=== PATIENT | female | born 1990 | race Caucasian/White ===

== ENCOUNTER 2017-07-30 11:40 | Emergency (ER) | payer MEDICAID, SELFPAY ==
[2017-07-30 11:40] VITALS: BP 151/96; PULSE 88; RESP 20; TEMP 36.6; O2SAT 100; BMI 37.0
--- NOTE | 2017-07-30 11:53 | NURSING ---
NO OLD EKGS
--- NOTE | 2017-07-30 12:14 | EKG12_ITS ---
Test Reason : CP Blood Pressure : / mmHG Vent. Rate : 063 BPM Atrial Rate : 063 BPM P-R Int : 124 ms QRS Dur : 084 ms QT Int : 370 ms P-R-T Axes : -05 006 009 degrees QTc Int : 378 ms Sinus rhythm with marked sinus arrhythmia Otherwise normal ECG Confirmed by FLORENCIO FRENCH, YESY ([id number]), design editor OSORIO BERGMAN ([id number]) on 07/31/2017 2:25:15 PM Referred By: SANDRA Confirmed By:YESY MATIAS MD
--- NOTE | 2017-07-30 12:14 | RAD_ITS ---
STUDY: X-RAY CHEST REASON FOR EXAM: Female, 27 years old. Chest pain x2 days TECHNIQUE: Single AP portable view of the chest. COMPARISON: None. FINDINGS: The lungs are clear and expanded. There is no demonstrated pleural abnormality. Normal size heart. Normal mediastinum and yo. Normal visualized pulmonary arteries. Normal visualized aortic arch and descending thoracic aorta. Normal visualized thoracic spine. Normal visualized ribs, clavicles, and shoulders. There is no demonstrated abnormality of the visualized soft tissue structures of the upper abdomen. RAD/Chest 1 View (Portable) IMPRESSION: Normal x-ray examination of the chest. Electronically Signed: Nahun Pierre DO at 12:49 EDT Tel , Service support ,
[2017-07-30] MEDS: 0.9% Normal Saline 1,000 ML 1000 ML IV (12:44)
[2017-07-30 12:47] LABS: Absolute Lymphocyte Count 3.03 X10^3/ul (0.83-4.51); Absolute Neutrophil Count 5.8 X10^3/uL (2.0-7.7); Basophil# 0.03 X10^3/uL; Basophil% 0.3 % (0-1); Eosinophil# 0.18 X10^3/uL; Eosinophils% 1.8 % (0-5); Hematocrit 38.7 % (37-47); Hemoglobin 13.1 g/dl (12.0-15.0); Lymphocyte # 3.03 X10^3/ul (4.0); Lymphocyte % 31.1 % (19-41); Mean Corp Hgb Conc 33.9 g/gl (32-36); Mean Corpuscular Hgb 28.7 pg (27.0-32.0); Mean Corpuscular Volume 84.7 fL (81-99); Mean Platelet Vol. 10.5 fl (6.2-12.0); Monocyte# 0.67 X10^3/uL; Monocyte% 6.9 % (0-10); Neutrophil # 5.83 X10^3/uL (2.7-7.7); Neutrophil % 59.8 % (47-70); POSITIVE COUNT NO; POSITIVE DIFFERENTIAL NO; POSITIVE MORPHOLOGY NO; Platelet Count 295 K/mm3 (150-450); RBC Distribution Width CV 12.5 % (11.6-14.6); RBC Distribution Width SD 38.1 fl (35.1-43.9); Red Blood Count 4.57 M/mm3 (4.2-5.4); White Blood Count 9.8 K/mm3 (4.4-11.0)
[2017-07-30 13:01] LABS: Anion Gap 8 (5-15); BUN 15 mg/dL (7-18); BUN/Creat Ratio 21.7 RATIO (10-20); Calcium,Total 9.2 mg/dL (8.5-10.1); Chloride 108 mmol/L (98-107); Creatinine, Serum 0.69 mg/dL (0.55-1.02); EST Glomerular Filtration Rate 110 mL/min (>60); Est Glom Filt Rate - Afr Amer 133 mL/min (>60); Estimated Creatinine Clearance 98.58 ml/min; Glucose 80 mg/dL (74-106); Potassium 3.8 mmol/L (3.5-5.1); Sodium Level 140 mmol/L (136-145)
[2017-07-30 13:02] LABS: D-Dimer Quantitative (DVT/PE) 0.35 FEU/ug/m (0.27-0.49)
[2017-07-30 13:08] LABS: Pregnancy, Serum, hCG Quali. NEGATIVE Negative (0-9 Nonpreg)
--- NOTE | 2017-07-30 13:38 | ED.VISSUMM ---
- ER Visit Summary Date of Service: 07/30/17 Chief Complaint: Chest pain History of Present Illness: The patient is a 27 F with no primary care physician. She reports that she has a tightness over the left side of her chest that began 2 days ago. Is a continuous waxing and waning pain. Zeta 10 at worst and currently. States that is worsened by deep breaths and relieved by nothing. She denies any personal or family history of DVT. No recent travel. She does have a NuvaRing in place and smokes however. No ankle swelling or calf pain. Physical Examination: Vitals: Stable. Afebrile. General: Well-nourished and well-developed. Head: Normocephalic atraumatic. Neck: Supple, no lymphadenopathy. No JVD. Nontender. Cardiovascular: Regular rate and rhythm. No murmurs. Respiratory: No respiratory distress. Clear to auscultation bilaterally. Moderate tenderness palpation over the left upper chest that does reproduce her pain. Abdominal: Soft, nontender, nondistended, normal bowel sounds. No guarding, rebound, or peritoneal signs. Back: Nontender. Extremities: Nontender, no edema. Skin: Normal color, no rash. Neurologic: Alert and oriented ?3. Cranial nerves II through XII are intact. Normal strength and sensation. Psych: Normal affect. Test Results: EKG is sinus arrhythmia at 63 with no acute changes. D-dimer is negative. test negative. Chem-7 is more for chloride 108. CBC is normal. Emergency Department Course and Treatment: Patient refused pain medications and is resting comfortably. Treatment Plan: Patient will be discharged instructions to follow-up Dr. Omari Peralta III in 3-5 days not improving. She be placed on naproxen at home. Return to the emergency department for any worsening symptoms. Disposition: To home in improved and stable condition. Impression: 1. Atypical chest pain. This note was generated with [employer] dictation software. It may contain incorrect words, spelling, and punctuation that were not noted in review of the chart prior to signing ED Disposition - Plan for ED Patient: Disposition: Home or Assisted Living Chief Complaint: Chest Pain Instructions: ED Chest Pain Atypical Unkn Cause Prescriptions: Naproxen [Naprosyn] 500 mg PO BID #20 tablet Referrals: Omari Peralta III, MD [STAFF PHYSICIAN] - 3-5 Days if not improving
[2017-07-30 13:57] VITALS: BP 128/78; PULSE 58; RESP 16; O2SAT 98
== END 2017-07-30 13:59 | disposition home or self-care (01) ==
LOC: ED 12:46
PROVIDERS: Emergency Provider Emergency Medicine
DX: R07.89 Other chest pain (principal); I49.9 Cardiac arrhythmia, unspecified; R61 Generalized hyperhidrosis; R06.00 Dyspnea, unspecified; F17.200 Nicotine dependence, unspecified, uncomplicated; Z97.5 Presence of (intrauterine) contraceptive device
CPT/HCPCS: 71045; 80048; 84703; 85025; 85379; 93005; 96360; 99285; J7030; A4216

== ENCOUNTER 2018-08-18 09:40 | Emergency (ER) | payer MEDICAID, SELFPAY ==
[2018-08-18 09:42] VITALS: BP 143/107; PULSE 125; RESP 18; TEMP 36; O2SAT 96; BMI 33.7
--- NOTE | 2018-08-18 09:52 | RAD_ITS ---
STUDY: X-RAY CHEST REASON FOR EXAM: Female, 28 years old. Cough. Nausea and vomiting. TECHNIQUE: Single AP portable view of the chest. COMPARISON: Comparison is made with prior study of July 30, 2017. FINDINGS: The lungs are clear and expanded. There is no demonstrated pleural abnormality. Normal size heart. Normal mediastinum and yo. Normal visualized pulmonary arteries. Normal visualized aortic arch and descending thoracic aorta. Normal visualized thoracic spine. Normal visualized ribs, clavicles, and shoulders. There is no demonstrated abnormality of the visualized soft tissue structures of the upper abdomen. RAD/Chest PA and Lateral IMPRESSION: Normal x-ray examination of the chest. Electronically Signed: Kai Mcdermott, at 10:52 EDT , Service support ,
--- NOTE | 2018-08-18 09:52 | EKG12_ITS ---
Test Reason : N/V Blood Pressure : / mmHG Vent. Rate : 096 BPM Atrial Rate : 096 BPM P-R Int : 132 ms QRS Dur : 080 ms QT Int : 340 ms P-R-T Axes : 048 007 022 degrees QTc Int : 429 ms Normal sinus rhythm Normal ECG Confirmed by FLORENCIO FRENCH, YESY ([id number]), film editor supervisor OSORIO BERGMAN ([id number]) on 08/23/2018 4:21:58 PM Referred By: PRASANNA Confirmed By:YESY MATIAS MD
--- NOTE | 2018-08-18 09:58 | ED.DCSUM_ITS ---
- ER Visit Summary Date of Service: 08/18/18 Chief Complaint: Nausea, vomiting, and diarrhea History of Present Illness: The patient is a 28 F with nausea vomiting and diarrhea. Her symptoms started 4 days ago. She had chest tightness, cough, sputum, fevers, and body aches. She went to urgent care yesterday and they diagnosed her clinically with pneumonia. She was prescribed doxycycline and albuterol. She feels like her symptoms are getting worse. Patient has a previous history of smoking. Denies any history of lung disease or heart disease. Physical Examination: Afebrile but tachycardic at 125. Patient appears ill and uncomfortable but not toxic or in distress. HEENT exam is unremarkable. Heart is tachycardic but regular. Lungs show wheezing in all [place]. Abdomen is soft. Extremities nontender with no edema. Skin is normal in color. Test Results: EKG, labs, chest x-ray pending. Emergency Department Course and Treatment: Patient symptoms sound concerning for influenza. I also considered other infectious causes. She is a former smoker and has some wheezing. She was treated with a DuoNeb, Solu-Medrol, fluids, and some Zofran. Will check labs, EKG, and chest x-ray. We will also check a flu swab. There is nothing to suggest ACS, PE. Patient was positive for influenza A. The remainder of her workup including labs, troponin, EKG, chest x-ray unremarkable. Nausea improved with Zofran. I believe the patient is appropriate for outpatient therapy. She is not septic. I cannot identify complications of influenza. Patient is outside the window for Tamiflu. She will be prescribed prednisone, albuterol, and Zofran. She should discontinue her doxycycline. She should return right away if she is worse or has any new issues. Treatment Plan: As above Disposition: Discharge Impression: 1. Influenza A 2. Bronchitis This note was generated with [employer] dictation software. It may contain incorrect words, spelling, and punctuation that were not noted in review of the chart prior to signing ED Disposition - Plan for ED Patient: Referrals: Care Physician,No Primary [Primary Care Provider] -
[2018-08-18 10:16] VITALS: PULSE 109; RESP 18
[2018-08-18] MEDS: Ipratropium/Albuterol Sulfate 3 ML AMPUL.NEB INHALATION (10:16)
[2018-08-18] MEDS: 0.9% Normal Saline 1,000 ML 1000 ML IV (10:24)
[2018-08-18] MEDS: Ondansetron 4 MG/2 ML Vial IV (10:25)
[2018-08-18] MEDS: MethylPREDNISolone 125 MG/2 ML Vial IV (10:25)
[2018-08-18 10:26] LABS: Absolute Lymphocyte Count 1.27 X10^3/ul (0.83-4.51); Absolute Neutrophil Count 6.1 X10^3/uL (2.0-7.7); Basophil# 0.04 X10^3/uL; Basophil% 0.5 % (0-1); Eosinophil# 0.01 X10^3/uL; Eosinophils% 0.1 % (0-5); Hematocrit 42.1 % (37-47); Hemoglobin 15.1 g/dl (12.0-15.0); Lymphocyte # 1.27 X10^3/ul (4.0); Lymphocyte % 15.2 % (19-41); Mean Corp Hgb Conc 35.9 g/gl (32-36); Mean Platelet Vol. 10.5 fl (6.2-12.0); Monocyte# 0.89 X10^3/uL; Monocyte% 10.7 % (0-10); Neutrophil # 6.13 X10^3/uL (2.7-7.7); Neutrophil % 73.4 % (47-70); Platelet Count 292 K/mm3 (150-450); RBC Distribution Width CV 12.6 % (11.6-14.6); RBC Distribution Width SD 37.1 fl (35.1-43.9); White Blood Count 8.4 K/mm3 (4.4-11.0)
[2018-08-18 10:28] LABS: POSITIVE COUNT NO; POSITIVE DIFFERENTIAL NO; POSITIVE MORPHOLOGY NO
[2018-08-18 10:39] LABS: Anion Gap 8 (5-15); BUN 9 mg/dL (7-18); Calcium,Total 8.9 mg/dL (8.5-10.1); Chloride 108 mmol/L (98-107); EST Glomerular Filtration Rate 80 mL/min (>60); Est Glom Filt Rate - Afr Amer 97 mL/min (>60); Estimated Creatinine Clearance 74.92 ml/min; Glucose 103 mg/dL (74-106); Potassium 3.3 mmol/L (3.5-5.1); Sodium Level 139 mmol/L (136-145)
--- NOTE | 2018-08-18 11:08 | ED.RN ---
lab resulted positive flu a, physician notified
--- NOTE | 2018-08-18 12:07 | ED.DEP ---
ED Disposition - Plan for ED Patient: Instructions: Influenza Prescriptions: Ondansetron [Zofran Odt] 4 mg PO Q8H PRN PRN #10 tab PRN Reason: Nausea Prednisone 10 mg PO UD #33 tab Referrals: Siobhan Edouard [NON-STAFF] -
== END 2018-08-18 12:35 | disposition home or self-care (01) ==
PROVIDERS: Emergency Provider Emergency Medicine
DX: J09.X2 Influenza due to identified novel influenza A virus with other respiratory manifestations (principal); J40 Bronchitis, not specified as acute or chronic; Z87.891 Personal history of nicotine dependence
CPT/HCPCS: 71046; 80048; 84484; 85025; 87804; 93005; 94640; 96361; 96374; 96375; 99283; J7030; A4216; J2405

== ENCOUNTER 2019-07-12 04:57 | Emergency (ER) | payer MEDICAID, SELFPAY ==
[2019-07-12 04:57] VITALS: BP 132/102; PULSE 80; RESP 14; TEMP 36.9; O2SAT 96; BMI 33.0
--- NOTE | 2019-07-12 05:28 | EKG12_ITS ---
Test Reason : DYSRHYTHMIA Blood Pressure : / mmHG Vent. Rate : 059 BPM Atrial Rate : 059 BPM P-R Int : 124 ms QRS Dur : 086 ms QT Int : 388 ms P-R-T Axes : 022 014 031 degrees QTc Int : 384 ms Sinus bradycardia Otherwise normal ECG Confirmed by LAURA LANCE ([id number]), publications editor RONDA WATKINS ([id number]) on 07/13/2019 2:31:36 PM Referred By: Confirmed By:LAURA LANCE
--- NOTE | 2019-07-12 05:29 | CT_ITS ---
STUDY: CTA CHEST REASON FOR EXAM: Female, 29 years old. Chest pain and shortness of breath. RADIATION DOSAGE (If Supplied By Facility): CTDIvol = ( 8.93 ) mGy, DLP = ( 385.22 ) mGycm TECHNIQUE: The examination was performed with the intravenous administration of 100mL Isovue 370. Post-processing of the angiographic images was performed, with MIP reconstructed images. Individualized dose optimization techniques were used for this CT. COMPARISON: 08/18/2018 CXR FINDINGS: Heart and great vessels: Heart size normal. No dissection or aneurysm of the thoracic aorta. No pulmonary embolus. No evidence of right heart strain. Lungs, pleura: Multifocal groundglass opacities scattered throughout all lobes of both lungs, most prominent in the lingula. No pneumothorax, pleural effusion, or consolidation. Small amount of mucous plugging in left lower lobe subsegmental bronchioles. Trachea, main bronchi patent. Mediastinum: Mild prevascular, paratracheal, subcarinal, and bilateral hilar adenopathy. Osseous:No fracture or acute osseous abnormality. Chest wall: No concerning findings. Upper abdomen: No acute findings. CT/CTA Chest W/WO Contrast IMPRESSION: Several groundglass opacities in the bilateral lungs suspicious atypical or viral pneumonia. Noninfectious inflammatory pneumonitis or edema possible but less likely. Mild reactive appearing mediastinal and hilar adenopathy. Electronically Signed: Chevy Cabrera, at 7:14 EST Tel , Service support ,
[2019-07-12 05:44] VITALS: PULSE 79; RESP 18; RESP 20; O2SAT 93
[2019-07-12] MEDS: Albuterol 2.5 MG/3 ML VIAL.NEB. INHALATION ×3 (05:44)
[2019-07-12] MEDS: Ipratropium/Albuterol Sulfate 3 ML AMPUL.NEB INHALATION (05:44)
[2019-07-12 05:47] VITALS: TEMP 36.9
[2019-07-12] MEDS: 0.9% Normal Saline 1,000 ML 1000 ML IV (05:48)
[2019-07-12] MEDS: Ketorolac 15 MG/ML Vial IV (05:48)
--- NOTE | 2019-07-12 05:50 | ED.VISSUMM ---
- ER Visit Summary Date of Service: 07/12/19 Chief Complaint: Chest pain, cough History of Present Illness: The patient is a 29 F presenting with cough, chest pain, shortness of breath. She states this started one week ago. She was diagnosed with pneumonia and started on doxycycline. She complains of right-sided chest pain. She states it has been constant since 730pm last night. It is worsened with coughing and deep breathing. She denies PE/DVT risk factors. She has a history of migraines, denies other past medical history. She is not a smoker. Denies family history of early heart disease. Denies fever. Denies other complaints. Physical Examination: Vitals are stable. Patient is afebrile. Alert no acute distress. HEENT exam is unremarkable. Neck is supple. Lungs are expiratory wheezing bilaterally Heart is regular rate and rhythm. Abdomen is soft nontender nondistended. Extremities are unremarkable. Skin is warm and dry. No focal neurologic deficit. Remainder of exam is unremarkable. Emergency Department Course and Treatment: Patient was given albuterol, Atrovent aerosols. She is given Toradol IV. EKG is sinus rate of 59 with no acute ischemic changes. CBC shows white count 12.6. Chemistries unremarkable. Troponin is negative. hCG negative. CTA chest shows several groundglass opacities in the bilateral lungs suspicious atypical or viral pneumonia. Noninfectious inflammatory pneumonitis or edema possible but less likely. Mild reactive appearing mediastinal and hilar adenopathy. On reevaluation, patient is feeling improved. Her lung sounds are improved. Her ambulatory pulse ox was 94% on room air. She is advised to continue her doxycycline until complete. She is given a prescription for Augmentin. Advised return to the ED for worsening complaints. Advised to follow up with primary care physician. Disposition: Discharge home Impression: Atypical pneumonia This note was generated with [employer] dictation software. It may contain incorrect words, spelling, and punctuation that were not noted in review of the chart prior to signing ED Disposition - Plan for ED Patient: Instructions: Pneumonia Prescriptions: Amoxicillin/Potassium Clav [Augmentin 875-125 Tablet] 1 ea PO BID #14 tab Prescription Printed Referrals: Colt Hardwick MD [Primary Care Provider] -
[2019-07-12 05:54] LABS: Absolute Lymphocyte Count 4.09 X10^3/uL (0.83-4.51); Absolute Neutrophil Count 5.3 X10^3/uL (2.0-7.7); Basophil% 0.8 % (0-1); Eosinophils% 16.9 % (0-5); Hematocrit 42.7 % (37-47); Hemoglobin 14.5 g/dL (12.0-15.0); Lymphocyte # 4.09 X10^3/ul (4.0); Lymphocyte % 32.4 % (19-41); Mean Corpuscular Hgb 28.9 pg (27.0-32.0); Mean Corpuscular Volume 85.2 fL (81-99); Mean Platelet Vol. 10.3 fl (6.2-12.0); Monocyte# 0.95 X10^3/uL; Monocyte% 7.5 % (0-10); NRBC Flagged by Analyzer 0 % (0-5); Neutrophil # 5.33 X10^3/uL (2.7-7.7); Neutrophil % 42.2 % (47-70); POSITIVE DIFFERENTIAL YES; Platelet Count 291 K/mm3 (150-450); RBC Distribution Width CV 12.5 % (11.6-14.6); RBC Distribution Width SD 38.7 fl (35.1-43.9); Red Blood Count 5.01 M/mm3 (4.2-5.4); White Blood Count 12.6 K/mm3 (4.4-11.0)
[2019-07-12 06:06] LABS: Internal QC Validated? YES +Cl - CLEAR BKGD; Pregnancy, Serum, hCG Quali. NEGATIVE Negative
[2019-07-12 06:15] LABS: Anion Gap 5 (5-15); BUN 18 mg/dL (7-18); BUN/Creat Ratio 23.4 RATIO (10-20); Calcium,Total 9.1 mg/dL (8.5-10.1); Chloride 108 mmol/L (98-107); Creatinine, Serum 0.77 mg/dL (0.55-1.02); EST Glomerular Filtration Rate 96 mL/min (>60); Est Glom Filt Rate - Afr Amer 116 mL/min (>60); Glucose 84 mg/dL (74-106); Sodium Level 139 mmol/L (136-145)
--- NOTE | 2019-07-12 06:22 | CPS ---
x3 Albuterol given to pt. in ER as well
[2019-07-12 06:27] LABS: Eosinophil# 2.14 X10^3/uL
[2019-07-12 06:28] LABS: Differential Indicated SCAN CRITERIA MET
[2019-07-12 07:25] VITALS: BP 115/65; PULSE 89; RESP 24; O2SAT 100
[2019-07-12 07:33] VITALS: O2SAT 92
--- NOTE | 2019-07-12 07:38 | ED.DEP ---
ED Disposition - Plan for ED Patient: Instructions: Pneumonia Prescriptions: Amoxicillin/Potassium Clav [Augmentin 875-125 Tablet] 1 each PO BID #14 tablet Referrals: Colt Hardwick MD [Primary Care Provider] -
[2019-07-12 07:58] VITALS: PULSE 69; RESP 17; O2SAT 98
[2019-07-12] MEDS: Amox/Clavulanate 875 MG Tablet PO (07:59)
[2019-07-13 10:26] LABS: Pathologist Review Reviewed
== END 2019-07-12 08:04 | disposition home or self-care (01) ==
LOC: ED 05:49
PROVIDERS: Emergency Provider Emergency Medicine; PCP Family Medicine
DX: J18.9 Pneumonia, unspecified organism (principal)
CPT/HCPCS: 71275; 80048; 84484; 84703; 85025; 93005; 94640; 96361; 96374; 99251; 99283; Q9967; G0463

== ENCOUNTER 2019-08-17 02:02 | Emergency (ER) | payer MEDICAID, SELFPAY ==
[2019-08-17 02:03] VITALS: BP 127/109; PULSE 74; RESP 18; TEMP 36.6; O2SAT 98; BMI 35.9
[2019-08-17 02:07] VITALS: BP 128/77
[2019-08-17] MEDS: Ondansetron 4 MG/2 ML Vial IV (02:42)
[2019-08-17] MEDS: Ketorolac 30 MG/ML Syringe IV (02:42)
[2019-08-17] MEDS: Mag Hydrox/Al Hydrox/Simeth 30 ML UDC PO (02:42)
[2019-08-17] MEDS: 0.9% Normal Saline 1,000 ML 1000 ML IV (02:42)
[2019-08-17 02:57] LABS: Bacteria 0 SEEN /hpf (None Seen); Mucous, Urine 0 SEEN /hpf (<or=2+); Red Blood Cells-Urine 0 SEEN /hpf (0-5); White Blood Cells 0 SEEN /hpf (0-5)
[2019-08-17 03:10] LABS: AST(SGOT) 9 U/L (15-37); Absolute Lymphocyte Count 5.57 X10^3/uL (0.83-4.51); Absolute Neutrophil Count 4.3 X10^3/uL (2.0-7.7); Alanine Aminotransfer ALT/SGPT 16 U/L (13-56); Albumin, Serum 3.3 g/dL (3.2-5.0); Alkaline Phosphatase 58 U/L (45-117); Anion Gap 5 (5-15); BUN 18 mg/dL (7-18); Basophil# 0.08 X10^3/uL; Basophil% 0.7 % (0-1); Bilirubin, Direct 0.07 mg/dL (0.00-0.30); Calcium,Total 9.3 mg/dL (8.5-10.1); Chloride 110 mmol/L (98-107); EST Glomerular Filtration Rate 79 mL/min (>60); Eosinophil# 1.09 X10^3/uL; Eosinophils% 9.2 % (0-5); Est Glom Filt Rate - Afr Amer 96 mL/min (>60); Estimated Creatinine Clearance 74.26 ml/min; Globulin 3.9 g/dL (2.2-4.2); Glucose 101 mg/dL (74-106); Hematocrit 38.4 % (37-47); Hemoglobin 12.8 g/dL (12.0-15.0); Internal QC Validated? YES +Cl - CLEAR BKGD; Lipase 117 U/L (73-393); Lymphocyte # 5.57 X10^3/ul (4.0); Mean Corp Hgb Conc 33.3 g/dL (32-36); Mean Corpuscular Volume 87.1 fL (81-99); Mean Platelet Vol. 10.3 fl (6.2-12.0); Monocyte# 0.77 X10^3/uL; Monocyte% 6.5 % (0-10); NRBC Flagged by Analyzer 0 % (0-5); Neutrophil # 4.31 X10^3/uL (2.7-7.7); Neutrophil % 36.4 % (47-70); POSITIVE DIFFERENTIAL YES; Platelet Count 310 K/mm3 (150-450); Potassium 4.1 mmol/L (3.5-5.1); Pregnancy, Serum, hCG Quali. NEGATIVE Negative; Protein, Total 7.2 g/dL (6.4-8.2); RBC Distribution Width CV 12.4 % (11.6-14.6); RBC Distribution Width SD 39.8 fl (35.1-43.9); Red Blood Count 4.41 M/mm3 (4.2-5.4); Sodium Level 139 mmol/L (136-145); White Blood Count 11.8 K/mm3 (4.4-11.0)
[2019-08-17 03:13] LABS: Color, Urine Yellow (Yellow); Glucose, Dipstick Normal (Normal); Ketone-Dipstick Negative (Negative); Leukocyte Esterase-Dipstick Negative /ul (Negative); Nitrite-Dipstick Negative (Negative); Occult Blood-Urine Negative /ul (Negative); Protein-Dipstick Negative (Negative); Specific Gravity, Urine 1.015 (1.002-1.030); Urine Bilirubin Dipstick Negative (Negative); Urine Clarity Sl. Cloudy (Clear); Urine Urobilinogen Normal (Normal)
[2019-08-17 03:13] LABS: Differential Indicated SCAN CRITERIA MET
[2019-08-17 03:29] LABS: Squamous Epithelial Cells - UA 0-5 SEEN /hpf (5-10)
[2019-08-17 03:34] LABS: Reactive Lymphocyte RARE
--- NOTE | 2019-08-17 03:39 | ED.DCSUM_ITS ---
- ER Visit Summary Date of Service: 08/17/19 Chief Complaint: Abdominal pain History of Present Illness: The patient is a [address] Oron[place]. She reports that 8:00 this evening she had the onset of a sharp epigastric pain that has gradually worsened. Is 9 at 10 at worst and 710 currently. Is worsened by laying down. Is minimally relieved by Tylenol and Pepto-Bismol. She had nausea without any vomiting. No diarrhea. Her last bowel was yesterday. Normal hematochezia. She had frequent urination for the past 4 days. No dysuria. States her last menstrual period was 2 months ago and she has a NuvaRing in place. Patient last ate approximately an hour before this began. She states that she had chicken, potatoes, and hot sauce. She has no history of intolerance to spicy or fatty foods. No family history of gallstones. She is never had anything like this before. Physical Examination: Vitals: Stable. Afebrile. General: Well-nourished and well-developed. Head: Normocephalic atraumatic. Neck: Supple, no lymphadenopathy. No JVD. Nontender. Cardiovascular: Regular rate and rhythm. No murmurs. Respiratory: No respiratory distress. Clear to auscultation bilaterally. Abdominal: Soft, moderate epigastric tenderness to palpation, nondistended, normal bowel sounds. No guarding, rebound, or peritoneal signs. Back: Nontender. Extremities: Nontender, no edema. Skin: Normal color, no rash. Neurologic: Alert and oriented ?3. Cranial nerves II through XII are intact. Normal strength and sensation. Psych: Normal affect. Test Results: CBC shows white count 11.8 with 36 segment neutrophils, 47 lymphocytes, 9 eosinophils. Chem-7 shows a chloride of 110. LFTs show an AST of 9 and lipase is 117. UA is normal. test is negative. Emergency Department Course and Treatment: Patient was given Toradol and Zofran IV. She was given a GI cocktail with significant relief. Treatment Plan: Patient will be discharged with Prilosec. She given first dose of Pepcid here. Instructed to follow-up with her primary care physician 1 to 2 days if not improving. Return to the emergency department for any worsening symptoms. Disposition: To home in improved and stable condition. Impression: 1. Abdominal pain, uncertain cause. This note was generated with [employer] dictation software. It may contain incorrect words, spelling, and punctuation that were not noted in review of the chart prior to signing ED Disposition - Plan for ED Patient: Instructions: ED Abdominal Pain Unkn Cause Fem Prescriptions: Omeprazole [Prilosec] 20 mg PO DAILY #30 capsule Referrals: Colt Hardwick MD [Primary Care Provider] - 1-2 Days if not improving
[2019-08-17] MEDS: Famotidine 20 MG Tablet 40 MG PO (03:58)
== END 2019-08-17 03:59 | disposition home or self-care (01) ==
LOC: ED 02:40
PROVIDERS: Emergency Provider Emergency Medicine; PCP Family Medicine
DX: R10.13 Epigastric pain (principal); R35.0 Frequency of micturition; K92.1 Melena; R11.0 Nausea
CPT/HCPCS: 80048; 80076; 81001; 83690; 84703; 85025; 96361; 96374; 96375; 99283; J7030; A4216; J2405

== ENCOUNTER → 2020-02-16 17:59 | Outpatient (CLI) | payer MEDICAID, SELFPAY | PROVIDERS: PCP Family Medicine; Referring Provider Family Medicine; Visit Provider Family Medicine | CPT/HCPCS: 87635; C9803; U0003 ==

== ENCOUNTER 2020-05-08 12:32 | Emergency (ER) | payer MEDICAID, SELFPAY ==
[2020-05-08 12:33] VITALS: BP 133/83; PULSE 90; RESP 16; TEMP 37.2; O2SAT 98; BMI 36.2
--- NOTE | 2020-05-08 12:52 | ED.VIS.GEN ---
History of Present Illness Chief Complaint: Upper Extremity Injury Informant: Patient Narrative: 30-year-old female presenting where evaluation of dizziness. She states that she was concerned that her left shoulder pain was causing her to be dizzy. She states that her pain is not reproducible and she has not no trauma. She denies neck pain. She states the pain is in her left trapezius. Past Medical History - Allergies and Home Meds Allergies/Adverse Reactions: Allergies No Known Allergies Allergy (Verified 05/08/20 12:35) Primary Care Physician: Colt Hardwick MD [Primary Care Provider] - Smoking Status: Never smoker Review of Systems General: Denies: Chills, Fever, Sweats Eyes: Denies: Visual changes - bilaterally, Diplopia ENT: Denies: Rhinorrhea, Sore throat Cardiovascular: Denies: Chest pain, Palpitations Respiratory: Denies: Dyspnea, Cough, Dyspnea on exertion Genitourinary: Denies: Dysuria, Hematuria, Frequency Musculoskeletal: Reports: Neck pain Skin: Denies: Rash, Wounds Neurological: Denies: Headache, Parasthesia, Numbness Psych: Denies: Depression, Anxiety, Suicidal thoughts, Suicidal ideations, -, - Physical Exam Vital Signs/Narrative: Vital Signs Temp Pulse Resp BP Pulse Ox 05/08/20 12:33 98.9 F 90 16 133/83 H 98 General: Well nourished, Unkempt, No Acute Distress Eyes: Perrl, EOMI ENT: Moist mucous membranes, No rhinorrhea, - - Positive nystagmus on modified Onesimo-Hallpike. Dizziness is also elicited. Cardiovascular: Regular rate, Regular rhythm Extremities: Nontender, No edema Skin: Normal color, No rash Neurological: Alert, Oriented x3, Cranial nerves II-XII grossly intact, Normal Strength, Normal Sensation Psychological: Normal affect, Normal Mood Diagnostic/Tx/Re-eval - Medical Decision Making Patient presents with left-sided neck pain which is very mild and I am unable to reproduce pain by touching it but she points to her upper medial trapezius area its not quite in the neck or C-spine area. Patient states that she is also feeling dizzy. I was able to reproduce her dizziness as well as nystagmus with modified Onesimo-Hallpike. Patient will be given meclizine for home. She was given meclizine and Phenergan in the ER. She is given return precautions. Impression: 1. Vertigo 2. Trapezius strain ED Disposition - Plan for ED Patient: Disposition: Home or Assisted Living Instructions: ED Vertigo, Unspecified Prescriptions: Meclizine HCl 25 mg PO QHS PRN PRN #30 tab.chew PRN Reason: Dizziness Prescription Printed Referrals: Colt Hardwick MD [Primary Care Provider] -
[2020-05-08] MEDS: Meclizine HCl 25 MG Tablet PO (13:33)
[2020-05-08] MEDS: proMETHazine 25 MG Tablet PO (13:33)
[2020-05-08 13:35] VITALS: RESP 17
== END 2020-05-08 13:35 | disposition home or self-care (01) ==
LOC: ED 13:02
PROVIDERS: Emergency Provider Student in an Organized Health Care Education/Training Program; PCP Family Medicine
DX: R42 Dizziness and giddiness (principal); S29.012A Strain of muscle and tendon of back wall of thorax, initial encounter; X58.XXXA Exposure to other specified factors, initial encounter
CPT/HCPCS: 99285

== ENCOUNTER 2020-05-24 06:02 | Emergency (ER) | payer MEDICAID, SELFPAY ==
[2020-05-24 06:03] VITALS: BP 137/112; PULSE 98; RESP 18; TEMP 36.1; O2SAT 99; BMI 39.3
--- NOTE | 2020-05-24 06:27 | ED.DCSUM_ITS ---
History of Present Illness Informant: Patient Narrative: 30-year-old female presenting for the evaluation of near syncope. The patient states that the symptoms have been going on for weeks but only about 1 time per week. During the past week however they have become daily. She states they typically begin by her starting to feel warm and sweaty but not actually sweating. When she has her Fitbit on she states her heart rate goes to 120. She starts to say dizziness but then states it feels more like passing out. She then develops pain in the left side of her neck rating down towards her chest. States it begins to feel swollen. Currently she is experiencing the neck pain and feelings of near syncope. This began a little over 1 hour prior to arrival. She saw primary care yesterday and states that she had a high white blood cell count (approximately 11.5). She tells me that she is scheduled to have an MRI of her chest neck and head today. She states that she was told if she has another episode to come to emergency. She has not actually ever passed out from this. She denies any neck trauma. <Ryder Tanner - Last Filed: 05/24/20 07:10> <William Lawrence - Last Filed: 05/24/20 08:55> Chief Complaint: Dizziness Past Medical History Past Medical History: None Surgical History: noncontributory Smoking Status: Former smoker Drugs: None <Ryder Tanner - Last Filed: 05/24/20 07:10> <William Lawrence - Last Filed: 05/24/20 08:55> - Allergies and Home Meds Allergies/Adverse Reactions: Allergies No Known Allergies Allergy (Verified 05/08/20 12:35) Primary Care Physician: Colt Hardwick MD [Primary Care Provider] - Review of Systems General: Denies: Chills, Fever, Sweats Eyes: Denies: Visual changes - bilaterally, Diplopia ENT: Denies: Rhinorrhea, Sore throat Cardiovascular: Reports: Palpitations, Heart racing, - - Near syncopal. Denies: Chest pain Respiratory: Denies: Dyspnea, Cough, Dyspnea on exertion Gastrointestinal: Denies: Abdominal pain, Nausea, Vomiting, Diarrhea, Melena, Hematochezia Genitourinary: Denies: Dysuria, Hematuria, Frequency Musculoskeletal: Reports: Neck pain. Denies: Back pain, Extremity Pain Skin: Denies: Rash, Wounds Neurological: Denies: Headache, Weakness, Numbness <Ryder Tanner - Last Filed: 05/24/20 07:10> Physical Exam Vital Signs/Narrative: Vital Signs Temp Pulse Resp BP Pulse Ox 05/24/20 06:03 97.0 F L 98 18 137/112 H 99 Inital Vital Signs reviewed: Yes General: Well nourished, Well developed, No Acute Distress Head: Normocephalic, Atraumatic Eyes: Perrl, EOMI ENT: Moist mucous membranes, No rhinorrhea Neck: Supple, - - Tenderness to palpation along the left SCM muscle Cardiovascular: Regular rate, Regular rhythm, No murmurs Respiratory: No distress, CTA bilaterally, Chest nontender Abdomen: Soft, Nontender, Nondistended, Normal bowel sounds Back: Nontender, Normal Inspection Extremities: Nontender, No edema Skin: Normal color, No rash Neurological: Alert, Oriented x3, Cranial nerves II-XII grossly intact, Normal Strength, Normal Sensation Psychological: Normal affect, Normal Mood <Ryder Tanner - Last Filed: 05/24/20 07:10> Vital Signs/Narrative: Vital Signs Temp Pulse Resp BP Pulse Ox 05/24/20 08:02 82 16 124/79 H 98 05/24/20 06:03 97.0 F L 98 18 137/112 H 99 <William Lawrence - Last Filed: 05/24/20 08:55> Diagnostic/Tx/Re-eval Clinical Impression(s) from Imaging Studies Chest X-Ray 05/24/20 06:30 IMPRESSION: No radiographic evidence of acute cardiopulmonary disease. Electronically Signed: Lou Baeza MD at 7:04 EST , Service support , Laboratory Last Values WBC 8.6 K/mm3 (4.4-11.0) 05/24/20 06:30 RBC 4.64 M/mm3 (4.2-5.4) 05/24/20 06:30 Hgb 13.5 g/dL (12.0-15.0) 05/24/20 06:30 Hct 39.9 % (37-47) 05/24/20 06:30 MCV 86.0 fL (81-99) 05/24/20 06:30 MCH 29.1 pg (27.0-32.0) 05/24/20 06:30 MCHC 33.8 g/dL (32-36) 05/24/20 06:30 RDW Std Deviation 37.0 fl (35.1-43.9) 05/24/20 06:30 RDW Coeff of Aracely 11.8 % (11.6-14.6) 05/24/20 06:30 Plt Count 306 K/mm3 (150-450) 05/24/20 06:30 MPV 10.0 fl (6.2-12.0) 05/24/20 06:30 Immature Gran % (Auto) 0.200 % (0.0-0.9) 05/24/20 06:30 Neut % (Auto) 52.9 % (47-70) 05/24/20 06:30 Lymph % (Auto) 35.9 % (19-41) 05/24/20 06:30 [place] % (Auto) 7.2 % (0-10) 05/24/20 06:30 Eos % (Auto) 3.2 % (0-5) 05/24/20 06:30 Baso % (Auto) 0.6 % (0-1) 05/24/20 06:30 Absolute Neuts (auto) 4.5 X10^3/uL (2.0-7.7) 05/24/20 06:30 Absolute Lymphs (auto) 3.08 X10^3/uL (0.83-4.51) 05/24/20 06:30 Nucleated RBC % 0 % (0-5) 05/24/20 06:30 D-Dimer Quant (PE/DVT) <= 0.27 FEU/ug/m (0.27-0.49) 05/24/20 06:30 Sodium 140 mmol/L (136-145) 05/24/20 06:30 Potassium 3.9 mmol/L (3.5-5.1) 05/24/20 06:30 Chloride 112 mmol/L (98-107) H 05/24/20 06:30 Carbon Dioxide 22.0 mmol/L (21.0-32.0) 05/24/20 06:30 Anion Gap 6 (5-15) 05/24/20 06:30 BUN 18 mg/dL (7-18) 05/24/20 06:30 Creatinine 0.80 mg/dL (0.55-1.02) 05/24/20 06:30 Estim Creat Clear Calc 82.80 ml/min 05/24/20 06:30 Est GFR (MDRD) Af Amer 110 mL/min (>60) 05/24/20 06:30 Est GFR (MDRD) Non-Af 91 mL/min (>60) 05/24/20 06:30 BUN/Creatinine Ratio 22.5 RATIO (10-20) H 05/24/20 06:30 Glucose 91 mg/dL (74-106) 05/24/20 06:30 Calcium 8.9 mg/dL (8.5-10.1) 05/24/20 06:30 Total Bilirubin 0.40 mg/dL (0.20-1.00) 05/24/20 06:30 AST 7 U/L (15-37) L 05/24/20 06:30 ALT 16 U/L (13-56) 05/24/20 06:30 Alkaline Phosphatase 63 U/L (45-117) 05/24/20 06:30 Troponin I < 0.015 ng/mL (<0.045) 05/24/20 06:30 Total Protein 7.4 g/dL (6.4-8.2) 05/24/20 06:30 Albumin 3.3 g/dL (3.2-5.0) 05/24/20 06:30 Globulin 4.1 g/dL (2.2-4.2) 05/24/20 06:30 Albumin/Globulin Ratio 0.8 RATIO (0.9-2.4) L 05/24/20 06:30 Serum , Qual NEGATIVE Negative 05/24/20 06:30 - EKG Initial EKG Interpretation: Sinus Rhythm - EKG demonstrates a normal sinus rhythm at a rate of 71. Sinus arrhythmia noted. Normal intervals. - Medical Decision Making My interpretation of the single view portable chest x-ray is no acute process, normal mediastinal silhouette. Basic blood work is normal. D-dimer troponin negative. Patient is watched on the monitor with no events so far. I am going to go ahead and order a CTA of the head and neck. This will be done to rule out dissection/aneurysm. Care the patient will be assigned to the oncoming physician for check of CT results and final disposition. <Ryder Tanner - Last Filed: 05/24/20 07:10> - Medical Decision Making Patient was endorsed to me by the outgoing physician. CT angiogram of the head and neck were performed and were found to be negative. I performed a repeat evaluation of the patient, she is stable in the emergency department she has had no signs of arrhythmia on telemetry monitoring. Patient has an MRI scheduled for later today, and actually has a Holter monitor scheduled for next week. Given the patient's symptomatology I believe that this is the appropriate continued work-up, she does not require admission. Patient was given reassurance and she was discharged in stable condition. <William Lawrence - Last Filed: 05/24/20 08:55> ED Disposition <Ryder Tanner - Last Filed: 05/24/20 07:10> <William Lawrence - Last Filed: 05/24/20 08:55> - Plan for ED Patient: Disposition: Home or Assisted Living Diagnosis: Near syncope, Neck pain on left side Instructions: ED Near-Fainting, Uncertain Cause Referrals: Colt Hardwick MD [Primary Care Provider] - Keep [facility] appointment
--- NOTE | 2020-05-24 06:30 | RAD_ITS ---
STUDY: X-RAY CHEST REASON FOR EXAM: Female, 30 years old patient with near syncope. TECHNIQUE: Single AP portable view of the chest. COMPARISON: 08/18/2018. FINDINGS: Cardiac monitoring leads are present. The lungs are clear and expanded. There is no demonstrated pleural abnormality. Normal size heart. Normal mediastinum and yo. Normal visualized pulmonary arteries. Normal visualized aortic arch and descending thoracic aorta. Normal visualized thoracic spine. Normal visualized ribs, clavicles, and shoulders. There is no demonstrated abnormality of the visualized soft tissue structures of the upper abdomen. RAD/Chest 1 View (Portable) IMPRESSION: No radiographic evidence of acute cardiopulmonary disease. Electronically Signed: Lou Baeza MD at 7:04 EST , Service support ,
--- NOTE | 2020-05-24 06:32 | EKG12_ITS ---
Test Reason : DIZZYNESS Blood Pressure : / mmHG Vent. Rate : 071 BPM Atrial Rate : 071 BPM P-R Int : 130 ms QRS Dur : 082 ms QT Int : 366 ms P-R-T Axes : 021 000 008 degrees QTc Int : 397 ms Normal sinus rhythm with sinus arrhythmia Normal ECG Confirmed by FLORENCIO FRENCH, YESY ([id number]), city editor OSORIO BERGMAN ([id number]) on 05/30/2020 6:13:52 AM Referred By: Confirmed By:YESY MATIAS MD
[2020-05-24 06:42] LABS: Absolute Lymphocyte Count 3.08 X10^3/uL (0.83-4.51); Absolute Neutrophil Count 4.5 X10^3/uL (2.0-7.7); Basophil# 0.05 X10^3/uL; Basophil% 0.6 % (0-1); Eosinophil# 0.27 X10^3/uL; Eosinophils% 3.2 % (0-5); Hematocrit 39.9 % (37-47); Hemoglobin 13.5 g/dL (12.0-15.0); Lymphocyte # 3.08 X10^3/ul (4.0); Lymphocyte % 35.9 % (19-41); Mean Corp Hgb Conc 33.8 g/dL (32-36); Mean Corpuscular Hgb 29.1 pg (27.0-32.0); Monocyte# 0.62 X10^3/uL; Monocyte% 7.2 % (0-10); NRBC Flagged by Analyzer 0 % (0-5); Neutrophil # 4.53 X10^3/uL (2.7-7.7); Neutrophil % 52.9 % (47-70); Platelet Count 306 K/mm3 (150-450); RBC Distribution Width CV 11.8 % (11.6-14.6); Red Blood Count 4.64 M/mm3 (4.2-5.4); White Blood Count 8.6 K/mm3 (4.4-11.0)
[2020-05-24 06:56] LABS: D-Dimer Quantitative (DVT/PE) <= 0.27 FEU/ug/m (0.27-0.49)
[2020-05-24 07:00] LABS: Internal QC Validated? YES +Cl - CLEAR BKGD; Pregnancy, Serum, hCG Quali. NEGATIVE Negative
[2020-05-24 07:01] LABS: ALB/GLOB Ratio 0.8 RATIO (0.9-2.4); AST(SGOT) 7 U/L (15-37); Alanine Aminotransfer ALT/SGPT 16 U/L (13-56); Albumin, Serum 3.3 g/dL (3.2-5.0); Alkaline Phosphatase 63 U/L (45-117); Anion Gap 6 (5-15); BUN 18 mg/dL (7-18); BUN/Creat Ratio 22.5 RATIO (10-20); Calcium,Total 8.9 mg/dL (8.5-10.1); Chloride 112 mmol/L (98-107); EST Glomerular Filtration Rate 91 mL/min (>60); Est Glom Filt Rate - Afr Amer 110 mL/min (>60); Globulin 4.1 g/dL (2.2-4.2); Glucose 91 mg/dL (74-106); Potassium 3.9 mmol/L (3.5-5.1); Protein, Total 7.4 g/dL (6.4-8.2); Sodium Level 140 mmol/L (136-145)
--- NOTE | 2020-05-24 07:01 | CT_ITS ---
STUDY: CTA HEAD AND NECK WITH CONTRAST REASON FOR EXAM: Female, 30 years old. MULTIPLE NEAR SYNCOPE EPISODES X-SEVERAL WEEKS -- ELEVATED WBC RADIATION DOSAGE (If Supplied By Facility): CTDIvol = ( 26.59 ) mGy, DLP = ( 1416.93 ) mGycm TECHNIQUE: CT angiography was performed with a multi-detector CT scanner. Data acquisition was obtained from the skull base through the vertex following intravenous administration of 100cc [id number]. MIP images were reconstructed from the axial data set. Post-processing of the angiographic images was performed, with multiplanar reformation and 3D reconstruction. Individualized dose optimization techniques were used for this CT. COMPARISON: No relevant priors. FINDINGS: Normal bilateral petrous carotid arteries. Normal right cavernous carotid artery with a normal supraclinoid bifurcation. Normal left cavernous carotid artery with a normal supraclinoid bifurcation. Normal right A1 segments of the anterior cerebral artery. Normal left A1 segments of the anterior cerebral artery. Normal intact anterior communicating artery (ACOM). Normal bilateral A2 segments of the anterior cerebral arteries. Normal right M1 and M2 segments of the middle cerebral arteries, with a normal M1 bifurcation. Normal left M1 and M2 segments of the middle cerebral arteries, with a normal M1 bifurcation. Normal right posterior communicating artery (PCOM). Normal left posterior communicating artery (PCOM). Normal bilateral vertebral arteries. Normal basilar artery with a normal basilar bifurcation. The visualized bilateral superior cerebellar (SCA) arteries are normal. Normal bilateral P1, P2 and visualized P3 segments of the posterior cerebral arteries. There is no demonstrated aneurysm of the [place]. There is no demonstrated abnormality of the visualized brain. AORTIC ARCH: Normal visualized aortic arch. Normal origins of the brachiocephalic, left common carotid, and left subclavian arteries. RIGHT CAROTID ARTERIES: Normal right common carotid artery (CCA). Normal right common carotid bulb. Normal origin of the right internal carotid (ICA) artery without a hemodynamically significant stenosis. Normal visualized cervical portion of the right internal carotid artery. Normal origin of the right external carotid artery (ECA). LEFT CAROTID ARTERIES: Normal left common carotid artery (CCA). Normal left common carotid bulb. Normal origin of the left internal carotid (ICA) artery without a hemodynamically significant stenosis. Normal visualized cervical portion of the left internal carotid artery. Normal origin of the left external carotid artery (ECA). VERTEBRAL ARTERIES: Normal bilateral vertebral arteries. CT/CTA Head AND Neck W/ Contrast IMPRESSION: Normal CTA Head and neck with contrast. Electronically Signed: Kai Mcdermott, at 8:19 EST , Service support ,
--- NOTE | 2020-05-24 07:35 | NURSING ---
Attempted IV start x2 in preparation for CT scan without success. custom seamstress Erica to attempt.
[2020-05-24 08:02] VITALS: BP 124/79; PULSE 82; RESP 16; O2SAT 98
== END 2020-05-24 09:12 | disposition home or self-care (01) ==
PROVIDERS: Emergency Provider Emergency Medicine; PCP Family Medicine
DX: R55 Syncope and collapse (principal); M54.2 Cervicalgia; Z87.891 Personal history of nicotine dependence
CPT/HCPCS: 70496; 70498; 71045; 80053; 84484; 84703; 85025; 85379; 93005; 99284; Q9967; A4216

== ENCOUNTER 2020-06-08 09:25 | Emergency (ER) | payer MEDICAID, SELFPAY ==
[2020-06-08 09:29] VITALS: BP 144/81; PULSE 92; RESP 17; TEMP 36.8; O2SAT 98; BMI 38.5
--- NOTE | 2020-06-08 09:56 | EKG12_ITS ---
Test Reason : CP Blood Pressure : / mmHG Vent. Rate : 063 BPM Atrial Rate : 063 BPM P-R Int : 108 ms QRS Dur : 080 ms QT Int : 382 ms P-R-T Axes : -09 -03 007 degrees QTc Int : 390 ms Sinus rhythm with sinus arrhythmia with short HI Otherwise normal ECG Confirmed by ALBERTA FRENCH, HECTOR ([id number]), visual effects editor DIEGO CAMPBELL ([id number]) on 06/11/2020 12:11:13 PM Referred By: MISSY Confirmed By:MING PINZON MD
[2020-06-08 10:38] VITALS: BP 99/83; PULSE 94; RESP 21; O2SAT 99
--- NOTE | 2020-06-08 10:59 | ED.VISSUMM ---
- ER Visit Summary Date of Service: 06/08/20 Chief Complaint: Elevated heart rate History of Present Illness: The patient is a 30 F. Palpitations and intermittent sinus bradycardia and sinus tachycardia. Patient's had extensive work-up both here and your primary care physician's office with the [facility]. 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 She has an upcoming appointment with a delivery nurse. She was previously ruled out for a PE. Basis today she is having similar symptoms with palpitations and intermittent chest discomfort. She described the chest discomfort as in different areas of her chest coming and going. Nothing makes it specifically better or worse. No hemoptysis. Is not pleuritic. She does not have exertional dyspnea. She has no leg pain or swelling. She has never had a DVT or PE or significant risk factors. Physical Examination: Young female no acute distress vital signs stable afebrile. Heart rate 92 initially triage when I am in the room her heart rates in the 70s. Pulse ox is 98% on room air no signs hypoxia. HEENT exam unremarkable. Neck nontender no lymphadenopathy. No thyromegaly. Lungs clear to auscultation bilaterally. Heart regular rate and rhythm no murmur. Abdomen soft nontender. Normal bowel sounds no peritoneal signs. Chest were nontender. Patient moving all 4 extremities. Equal symmetrical radial pulses. Calves are nontender without edema or cords. Back nontender. Neurologically she is awake alert with no focal motor deficits. Test Results: EKG was performed shows normal sinus rhythm rate of 63 with no acute signs of CA or ischemia no signs of dysrhythmia. And unchanged from prior EKG several weeks ago. I did not feel she needed any other emergency department work-up today because she has had significant work-up for cardiac disease. They ruled out PEs. And she has had outpatient monitoring. Emergency Department Course and Treatment: Patient with atypical chest pain with a normal exam. Prior work-up has been reviewed and negative. Treatment Plan: Discharged home to follow-up with her primary care physician and/or her cardiac appointment. Disposition: Discharge Impression: Atypical chest pain and palpitations of uncertain etiology This note was generated with Accelerated IOation software. It may contain incorrect words, spelling, and punctuation that were not noted in review of the chart prior to signing ED Disposition - Plan for ED Patient: Referrals: Colt Hardwick MD [Primary Care Provider] -
--- NOTE | 2020-06-08 11:02 | ED.DEP ---
ED Disposition - Plan for ED Patient: Disposition: Home or Assisted Living Instructions: ED Chest Pain, Uncertain Cause Referrals: Colt Hardwick MD [Primary Care Provider] - 3-5 Days if not improving Additional Instructions: Follow-up with your cardiology appointment. Return if feeling worse. Your exam today was normal as well as her EKG. There is really no further emergency department testing that needs to be done you have had that done over the last several weeks.
[2020-06-08 11:03] VITALS: BP 106/40; PULSE 68; RESP 18; O2SAT 93
[2020-06-08 11:44] VITALS: BP 101/90; PULSE 88; RESP 16; O2SAT 96
== END 2020-06-08 11:44 | disposition home or self-care (01) ==
PROVIDERS: Emergency Provider Emergency Medicine; PCP Family Medicine
DX: R07.89 Other chest pain (principal); R00.2 Palpitations
CPT/HCPCS: 93005; 99284; A4216

== ENCOUNTER 2020-07-27 02:39 | Emergency (ER) | payer MEDICAID, SELFPAY ==
[2020-07-27 02:40] VITALS: BP 154/67; PULSE 74; RESP 16; TEMP 36.5; O2SAT 100; BMI 40.8
--- NOTE | 2020-07-27 02:44 | EKG12_ITS ---
Test Reason : CP Blood Pressure : / mmHG Vent. Rate : 074 BPM Atrial Rate : 074 BPM P-R Int : 122 ms QRS Dur : 086 ms QT Int : 376 ms P-R-T Axes : 017 004 018 degrees QTc Int : 417 ms Normal sinus rhythm with sinus arrhythmia Normal ECG Confirmed by FLORENCIO FRENCH, YESY ([id number]), film editor supervisor DIEGO CAMPBELL ([id number]) on 07/30/2020 10:33:43 AM Referred By: CL Confirmed By:YESY MATIAS MD
--- NOTE | 2020-07-27 02:45 | ED.DCSUM_ITS ---
History of Present Illness Chief Complaint: Chest Pain Informant: Patient Narrative: 30-year-old female with past medical history of GERD presents with concern for epigastric pain and right upper quadrant pain. States that this began approximately 4 hours ago. States it is intermittent. States it felt like she had severe heartburn. States that over the past 2 and half weeks she has been eating clean and only having lean meats and vegetables. States that last night she had a taco pizza. Denies any nausea, vomiting, shortness of breath, diaphoresis. Past Medical History - Allergies and Home Meds Allergies/Adverse Reactions: Allergies No Known Allergies Allergy (Verified 07/27/20 02:42) Primary Care Physician: Colt Hardwick MD [Primary Care Provider] - Prior records reviewed: Yes Past Medical History: - - GERD Surgical History: noncontributory Lives: Spouse/ Significant Other Smoking Status: Never smoker Alcohol: None Drugs: None Review of Systems General: Denies: Chills, Fever, Sweats Eyes: Denies: Visual changes - bilaterally, Diplopia ENT: Denies: Rhinorrhea, Sore throat Cardiovascular: Denies: Chest pain, Palpitations Respiratory: Denies: Dyspnea, Cough, Dyspnea on exertion Gastrointestinal: Reports: Abdominal pain. Denies: Nausea, Vomiting, Diarrhea, Melena, Hematochezia Genitourinary: Denies: Dysuria, Hematuria, Frequency Musculoskeletal: Denies: Back pain, Extremity Pain Skin: Denies: Rash, Wounds Neurological: Denies: Headache, Weakness, Numbness Physical Exam Vital Signs/Narrative: Vital Signs Temp Pulse Resp BP Pulse Ox 07/27/20 02:40 97.7 F L 74 16 154/67 H 100 Inital Vital Signs reviewed: Yes General: Well nourished, Well developed, No Acute Distress Head: Normocephalic, Atraumatic Eyes: Perrl, EOMI ENT: Moist mucous membranes, No rhinorrhea Neck: Supple, Nontender Cardiovascular: Regular rate, Regular rhythm, No murmurs Respiratory: No distress, CTA bilaterally, Chest nontender Abdomen: Soft, Nondistended, Normal bowel sounds, - - TTP in the upper epigastrum and RUQ. No [place] sign. Back: Nontender, Normal Inspection Extremities: Nontender, No edema Skin: Normal color, No rash Neurological: Alert, Oriented x3, Cranial nerves II-XII grossly intact, Normal Strength, Normal Sensation Psychological: Normal affect, Normal Mood Diagnostic/Tx/Re-eval Laboratory Data 07/27/20 07/27/20 07/27/20 03:00 03:00 03:00 WBC 10.9 RBC 4.32 Hgb 12.7 Hct 38.0 MCV 88.0 MCH 29.4 MCHC 33.4 RDW Std Deviation 38.5 RDW Coeff of Aracely 12.0 Plt Count 309 MPV 9.9 Immature Gran % (Auto) 0.200 Neut % (Auto) 56.0 Lymph % (Auto) 33.3 [place] % (Auto) 7.3 Eos % (Auto) 2.7 Baso % (Auto) 0.5 Absolute Neuts (auto) 6.1 Absolute Lymphs (auto) 3.64 Nucleated RBC % 0 Sodium 142 Potassium 4.1 Chloride 107 Carbon Dioxide 27.0 Anion Gap 8 BUN 17 Creatinine 0.78 Estim Creat Clear Calc 84.93 Est GFR (MDRD) Af Amer 114 Est GFR (MDRD) Non-Af 94 BUN/Creatinine Ratio 21.9 H Glucose 101 Calcium 9.0 Total Bilirubin 0.30 AST 7 L ALT 19 Alkaline Phosphatase 63 Total Protein 6.7 Albumin 3.2 Globulin 3.5 Albumin/Globulin Ratio 0.9 Lipase 106 Urine Color Yellow Urine Clarity Clear Urine pH 8.0 Ur Specific [place] 1.010 Urine Protein Negative Urine Glucose (UA) Normal Urine Ketones Negative Urine Occult Blood Negative Urine Nitrite Negative Urine Bilirubin Negative Urine Urobilinogen Normal Ur Leukocyte Esterase 25 H Urine RBC 0 SEEN Urine WBC 0-5 SEEN Ur Squamous Epith Cells 0-5 SEEN Urine Bacteria 1+ Urine Mucus 0 SEEN Urine Test Negative - Rhythm Strip Rhythm Strip: Sinus Rhythm Rate: 74 Ectopy: None - EKG Initial EKG Interpretation: Sinus Rhythm - Normal sinus rhythm at 74 bpm. [place] interval of 122 ms. QTC of 417 ms. No evidence of ST elevation or depression at this time. - Medical Decision Making Appears well and nontoxic. Vital signs within normal limits. Lab work normal. Patient symptoms are likely secondary to the fact that she is been eating clean with just lean meats and vegetables and then had a very greasy meal yesterday evening. Patient will be given surgical follow-up if continued symptoms for further testing of her gallbladder. Patient advised on starting Pepcid and Carafate. Asked to return for new or worsening symptoms. Patient agreeable and stable at time of discharge. Impression: 1. Epigastric pain ED Disposition - Plan for ED Patient: Disposition: Home or Assisted Living Instructions: Abdominal Pain Prescriptions: Sucralfate [Carafate] 1 gm PO 4X/DAY #56 tablet Prescription Printed Famotidine [Pepcid] 20 mg PO BID #28 tablet Prescription Printed Referrals: Colt Hardwick MD [Primary Care Provider] - 2 Days Juan Jose Bravo MD [STAFF PHYSICIAN] - 3-5 Days if not improving
[2020-07-27 03:08] LABS: Mucous, Urine 0 SEEN /hpf (<or=2+); Red Blood Cells-Urine 0 SEEN /hpf (0-5)
[2020-07-27 03:09] LABS: Absolute Lymphocyte Count 3.64 X10^3/uL (0.83-4.51); Absolute Neutrophil Count 6.1 X10^3/uL (2.0-7.7); Basophil# 0.05 X10^3/uL; Basophil% 0.5 % (0-1); Eosinophils% 2.7 % (0-5); Hemoglobin 12.7 g/dL (12.0-15.0); Lymphocyte # 3.64 X10^3/ul (4.0); Lymphocyte % 33.3 % (19-41); Mean Corp Hgb Conc 33.4 g/dL (32-36); Mean Corpuscular Hgb 29.4 pg (27.0-32.0); Mean Platelet Vol. 9.9 fl (6.2-12.0); Monocyte% 7.3 % (0-10); NRBC Flagged by Analyzer 0 % (0-5); Neutrophil # 6.12 X10^3/uL (2.7-7.7); Platelet Count 309 K/mm3 (150-450); RBC Distribution Width SD 38.5 fl (35.1-43.9); Red Blood Count 4.32 M/mm3 (4.2-5.4); White Blood Count 10.9 K/mm3 (4.4-11.0)
[2020-07-27] MEDS: Mag Hydrox/Al Hydrox/Simeth 30 ML UDC PO (03:09)
[2020-07-27 03:10] LABS: Color, Urine Yellow (Yellow); Glucose, Dipstick Normal (Normal); Ketone-Dipstick Negative (Negative); Leukocyte Esterase-Dipstick 25 /ul (Negative); Nitrite-Dipstick Negative (Negative); Occult Blood-Urine Negative /ul (Negative); Protein-Dipstick Negative (Negative); Urine Bilirubin Dipstick Negative (Negative); Urine Clarity Clear (Clear); Urine Urobilinogen Normal (Normal)
[2020-07-27 03:13] LABS: Internal QC Validated? YES +Cl - CLEAR BKGD; Pregnancy, Urine Negative Negative
[2020-07-27 03:18] LABS: Bacteria 1+ /hpf (None Seen); Squamous Epithelial Cells - UA 0-5 SEEN /hpf (5-10); White Blood Cells 0-5 SEEN /hpf (0-5)
[2020-07-27 03:30] LABS: ALB/GLOB Ratio 0.9 RATIO (0.9-2.4); AST(SGOT) 7 U/L (15-37); Alanine Aminotransfer ALT/SGPT 19 U/L (13-56); Albumin, Serum 3.2 g/dL (3.2-5.0); Alkaline Phosphatase 63 U/L (45-117); Anion Gap 8 (5-15); BUN 17 mg/dL (7-18); BUN/Creat Ratio 21.9 RATIO (10-20); Chloride 107 mmol/L (98-107); Creatinine, Serum 0.78 mg/dL (0.55-1.02); EST Glomerular Filtration Rate 94 mL/min (>60); Est Glom Filt Rate - Afr Amer 114 mL/min (>60); Estimated Creatinine Clearance 84.93 ml/min; Globulin 3.5 g/dL (2.2-4.2); Glucose 101 mg/dL (74-106); Lipase 106 U/L (73-393); Potassium 4.1 mmol/L (3.5-5.1); Protein, Total 6.7 g/dL (6.4-8.2); Sodium Level 142 mmol/L (136-145)
[2020-07-27 03:48] VITALS: BP 140/84; PULSE 84; RESP 16; O2SAT 100
[2020-07-27] MEDS: Sucralfate 1 GM Tablet PO (03:52)
[2020-07-27] MEDS: Famotidine 20 MG Tablet PO (03:52)
== END 2020-07-27 04:08 | disposition home or self-care (01) ==
PROVIDERS: Emergency Provider Emergency Medicine; PCP Family Medicine
DX: R10.13 Epigastric pain (principal); K21.9 Gastro-esophageal reflux disease without esophagitis
CPT/HCPCS: 80053; 81001; 81025; 83690; 85025; 93005; 99285; A4216

== ENCOUNTER 2020-08-23 15:49 | Outpatient (RCR) | payer MEDICAID, SELFPAY | END 2020-10-16 23:59 | LOC: IMMUN 15:49 | PROVIDERS: PCP Family Medicine; Referring Provider Family Medicine; Visit Provider Family Medicine | DX: Z23 Encounter for immunization (principal) | CPT/HCPCS: 0001A; 0002A; 91300 ==

== ENCOUNTER 2020-08-29 21:31 | Emergency (ER) | payer MEDICAID, SELFPAY ==
[2020-08-29 21:32] VITALS: BP 147/85; PULSE 84; RESP 18; TEMP 36.6; O2SAT 97; BMI 38.2
--- NOTE | 2020-08-29 22:01 | EKG12_ITS ---
Test Reason : BACK Blood Pressure : / mmHG Vent. Rate : 061 BPM Atrial Rate : 061 BPM P-R Int : 128 ms QRS Dur : 088 ms QT Int : 400 ms P-R-T Axes : 009 004 011 degrees QTc Int : 402 ms Normal sinus rhythm Normal ECG Confirmed by ALBERTA FRENCH, HECTOR ([id number]), assignment desk editor DIEGO CAMPBELL ([id number]) on 08/31/2020 8:17:30 AM Referred By: HARSH Confirmed By:MING PINZON MD
--- NOTE | 2020-08-29 22:14 | RAD_ITS ---
INDICATION: chest pain, upper right shoulder pain and occasional numbness in finger. pt denies sob and just recently got the covid vaccine. EXAMINATION/TECHNIQUE: X-RAY - XR Chest 2 Views COMPARISON: None. FINDINGS: The lungs are clear. The cardiomediastinal silhouette is unremarkable. No pleural effusion or pneumothorax. No acute osseous abnormalities. RAD/Chest PA and Lateral IMPRESSION: No acute radiographic abnormalities. Electronically Signed: Jenaro Shukla MD at 22:25 EDT Tel , Service support ,
[2020-08-29 22:16] VITALS: PULSE 68; RESP 18
[2020-08-29 22:21] LABS: Absolute Lymphocyte Count 4.14 X10^3/uL (0.83-4.51); Absolute Neutrophil Count 4.7 X10^3/uL (2.0-7.7); Basophil# 0.04 X10^3/uL; Basophil% 0.4 % (0-1); Eosinophil# 0.42 X10^3/uL; Eosinophils% 4.2 % (0-5); Hemoglobin 12.7 g/dL (12.0-15.0); Lymphocyte # 4.14 X10^3/ul (0.83-4.51); Lymphocyte % 41.3 % (19-41); Mean Corp Hgb Conc 32.6 g/dL (32-36); Mean Corpuscular Hgb 28.2 pg (27.0-32.0); Mean Corpuscular Volume 86.5 fL (81-99); Mean Platelet Vol. 10.4 fl (6.2-12.0); Monocyte# 0.72 X10^3/uL; Monocyte% 7.2 % (0-10); NRBC Flagged by Analyzer 0 % (0-5); Neutrophil # 4.69 X10^3/uL (2.7-7.7); Neutrophil % 46.8 % (47-70); Platelet Count 308 K/mm3 (150-450); RBC Distribution Width CV 11.9 % (11.6-14.6); RBC Distribution Width SD 38.1 fl (35.1-43.9); Red Blood Count 4.51 M/mm3 (4.2-5.4)
[2020-08-29] MEDS: Aspirin 81 MG TAB.CHEW 324 MG PO (22:27)
[2020-08-29 22:34] LABS: D-Dimer Quantitative (DVT/PE) <= 0.27 FEU/ug/m (0.27-0.49)
[2020-08-29 22:43] LABS: Anion Gap 6 (5-15); BUN 11 mg/dL (7-18); BUN/Creat Ratio 13.2 RATIO (10-20); Calcium,Total 9.1 mg/dL (8.5-10.1); Chloride 107 mmol/L (98-107); Creatinine, Serum 0.83 mg/dL (0.55-1.02); EST Glomerular Filtration Rate 86 mL/min (>60); Est Glom Filt Rate - Afr Amer 104 mL/min (>60); Estimated Creatinine Clearance 79.81 ml/min; Glucose 95 mg/dL (74-106); Potassium 3.8 mmol/L (3.5-5.1); Sodium Level 139 mmol/L (136-145)
--- NOTE | 2020-08-29 23:47 | ED.DCSUM_ITS ---
History of Present Illness Chief Complaint: Back Narrative: Patient presenting for evaluation secondary to back pain. Patient states over the course of the last 2 to 3 days she has been dealing with basically some back pain near her right scapula. This been a continuous pain seems to get somewhat worse over the course of the last couple of days. She reports that it is specifically worse with taking a deep breath. Patient denies any shortness of breath associated with this. She denies any hemoptysis. She has no personal history of DVT or PE but she is concerned because her mother has been dealing with a blood clotting issue that presented with similar symptoms. Patient is otherwise healthy, she does use the NuvaRing and she smokes. She denies any cardiovascular risk factors. She denies recent infectious signs or symptoms, any injuries or increased exertion that could have potentially caused this. Review of systems otherwise negative. Past Medical History - Allergies and Home Meds Allergies/Adverse Reactions: Allergies No Known Allergies Allergy (Verified 08/29/20 21:35) Primary Care Physician: Colt Hardwick MD [Primary Care Provider] - 1 Week if not improving Prior records reviewed: Yes Past Medical History: None Surgical History: noncontributory Lives: With Family Smoking Status: Former smoker Alcohol: None Drugs: None Review of Systems All systems negative except as indicated General: Denies: Chills, Fever, Sweats Eyes: Denies: Visual changes - bilaterally, Diplopia ENT: Denies: Rhinorrhea, Sore throat Cardiovascular: Reports: Chest pain Respiratory: Denies: Dyspnea, Cough, Dyspnea on exertion Gastrointestinal: Denies: Abdominal pain, Nausea, Vomiting, Diarrhea, Melena, Hematochezia Genitourinary: Denies: Dysuria, Hematuria, Frequency Musculoskeletal: Denies: Back pain, Extremity Pain Skin: Denies: Rash, Wounds Neurological: Denies: Headache, Weakness, Numbness Physical Exam Vital Signs/Narrative: Vital Signs Temp Pulse Resp BP Pulse Ox 08/29/20 22:16 68 18 08/29/20 21:32 97.9 F 84 18 147/85 H 97 Inital Vital Signs reviewed: Yes General: Well nourished, Well developed, No Acute Distress Head: Normocephalic, Atraumatic Eyes: Perrl, EOMI ENT: Moist mucous membranes, No rhinorrhea Neck: Supple, Nontender Cardiovascular: Regular rate, Regular rhythm, No murmurs Respiratory: No distress, CTA bilaterally, Chest nontender Abdomen: Soft, Nontender, Nondistended, Normal bowel sounds Back: Nontender, Normal Inspection Extremities: Nontender, No edema Skin: Normal color, No rash Neurological: Alert, Oriented x3, Cranial nerves II-XII grossly intact, Normal Strength, Normal Sensation Psychological: Normal affect, Normal Mood Diagnostic/Tx/Re-eval Chest X-Ray - ED: 2 View, Read by ED Physician, Normal Clinical Impression(s) from Imaging Studies Chest X-Ray 08/29/20 22:14 IMPRESSION: No acute radiographic abnormalities. Electronically Signed: Jenaro Shukla MD at 22:25 EDT Tel , Service support , Laboratory Data 08/29/20 08/29/20 08/29/20 22:09 22:09 22:09 WBC 10.0 RBC 4.51 Hgb 12.7 Hct 39.0 MCV 86.5 MCH 28.2 MCHC 32.6 RDW Std Deviation 38.1 RDW Coeff of Aracely 11.9 Plt Count 308 MPV 10.4 Immature Gran % (Auto) 0.100 Neut % (Auto) 46.8 L Lymph % (Auto) 41.3 H [place] % (Auto) 7.2 Eos % (Auto) 4.2 Baso % (Auto) 0.4 Absolute Neuts (auto) 4.7 Absolute Lymphs (auto) 4.14 Nucleated RBC % 0 D-Dimer Quant (PE/DVT) <= 0.27 Sodium 139 Potassium 3.8 Chloride 107 Carbon Dioxide 26.0 Anion Gap 6 BUN 11 Creatinine 0.83 Estim Creat Clear Calc 79.81 Est GFR (MDRD) Af Amer 104 Est GFR (MDRD) Non-Af 86 BUN/Creatinine Ratio 13.2 Glucose 95 Calcium 9.1 Troponin I < 0.015 - EKG Initial EKG Interpretation: - - Sinus rhythm at [address] segments normal T waves normal FL and QTc intervals no evidence of acute ischemia or arrhythmia - Medical Decision Making Patient presented for evaluation secondary to chest pain. This sounded very atypical, but the patient did complain of somewhat of a pleuritic component to this, so work-up was obtained. EKG found to be unremarkable. Chest x-ray by my personal review as well as radiology is negative. CBC chemistry D-dimer and troponin also found to be unremarkable. Patient's heart score is may be a maximum of 1, I do not believe that she requires admission. Patient rules out as far as this being associated with a pulmonary embolism, and this likewise is not a presentation of a aortic dissection or other serious etiology that would require further work-up or treatment. She was given reassurance and the patient was discharged. ED Disposition - Plan for ED Patient: Disposition: Home or Assisted Living Diagnosis: Chest pain Instructions: ED Chest Pain, Uncertain Cause Referrals: Colt Hardwick MD [Primary Care Provider] - 1 Week if not improving
[2020-08-29 23:51] VITALS: BP 120/66; PULSE 68; RESP 16; O2SAT 98
== END 2020-08-29 23:52 | disposition home or self-care (01) ==
PROVIDERS: Emergency Provider Emergency Medicine; PCP Family Medicine
DX: R07.9 Chest pain, unspecified (principal); Z87.891 Personal history of nicotine dependence
CPT/HCPCS: 71046; 80048; 84484; 85025; 85379; 93005; 99284

== ENCOUNTER 2021-05-28 08:07 | Emergency (ER) | payer MEDICAID, SELFPAY ==
[2021-05-28 08:07] VITALS: BP 141/74; PULSE 90; RESP 18; TEMP 35.7; O2SAT 98; BMI 38.2
--- NOTE | 2021-05-28 08:34 | EKG12_ITS ---
Test Reason : CP Blood Pressure : / mmHG Vent. Rate : 076 BPM Atrial Rate : 076 BPM P-R Int : 130 ms QRS Dur : 082 ms QT Int : 358 ms P-R-T Axes : 024 -01 007 degrees QTc Int : 402 ms Sinus rhythm with marked sinus arrhythmia Otherwise normal ECG Confirmed by FLORENCIO FRENCH, YESY ([id number]), acquisition editor DIEGO CAMPBELL ([id number]) on 05/29/2021 9:52:44 AM Referred By: JANEE Confirmed By:YESY MATIAS MD
--- NOTE | 2021-05-28 08:36 | EX.ED.DYSGE1 ---
HPI History of Present Illness Chief Complaint: Chest Pain Informant: patient Onset/Context/Timing Onset: Yesterday Context: Gradual Onset Current Severity: Mild Maximum Severity: Moderate Narrative Narrative: Patient presents secondary to left-sided chest and back pain. Patient was shoveling snow yesterday and believes that she just pulled a muscle. She is unable to sleep last night secondary to pain. She has pain with deep breath. She does not have pain with left arm movement and only very minimal pain with palpation over the chest wall. She does have a family history of blood clots. PFSH PFSH Medical History no medical history no medical history Home Medications etonogestrel-ethinyl estradiol 1 ea VG QMONTH 05/08/20 [History Last Taken Unknown] naproxen [Naprosyn] 500 mg PO BID PRN #20 tab 05/28/21 [Rx Last Taken Unknown] Allergy/AdvReac Type Severity Reaction Status Date / Time No Known Allergies Allergy Verified 05/28/21 08:09 Social History Smoking Status: Former smoker ROS ROS ED Constitutional Constitutional ED: Denies chills or fever(s) Eyes Eyes: Denies change in vision ENT ENT ED: Denies sore throat Cardiovascular Cardiovascular: Reports chest pain Respiratory/Chest Respiratory/Chest: Reports other Details: Pain with deep breath but does not feel short of breath. ; Denies cough Gastrointestinal Gastrointestinal: Denies abdominal pain, diarrhea, nausea or vomiting Genitourinary Genitourinary ED: Denies dysuria Musculoskeletal Musculoskeletal: Reports back pain Integumentary Denies rash Neurologic Neurologic: Denies headache(s) or weakness Allergic/Immunologic Allergic/Immunologic ED: Denies urticaria EXAM Physical Exam Const Vital Signs: 05/28/21 08:07 Temperature 96.2 F L Temperature Source Temporal Pulse Rate 90 Respiratory Rate 18 Blood Pressure 141/74 H Blood Pressure Mean 96 Pulse Ox 98 Oxygen Delivery Method Room Air Positive well nourished and well developed General Appearance ED: well developed HEENT Reports moist mucous membranes Eyes PERRL and EOMs intact bilaterally Neck supple Chest Wall inspection of chest normal and palpation of chest normal Chest Narrative: No reproducible chest wall pain. Resp normal respiratory effort and clear to auscultation bilaterally Cardio regular rate and regular rhythm GI non-tender Palpation: soft Back/Spine Back/Spine Narrative: No reproducible back pain. Extremity normal to inspection Neuro oriented x3 Sensorium / Orientation: alert Psych mental status grossly normal Skin no rashes or lesions noted MDM MDM MDM Narrative Medical decision making narrative: Due to the patient's family history BMP and D-dimer was obtained. EKG ordered. Lab Data Labs: Laboratory Results - last 24 hr 05/28/21 05/28/21 05/28/21 08:50 08:50 08:50 D-Dimer Quant (PE/DVT) <= 0.27 Sodium 139 Potassium 3.8 Chloride 104 Carbon Dioxide 25.0 Anion Gap 10 BUN 7 Creatinine 0.76 Estim Creat Clear Calc 86.38 Est GFR (MDRD) Af Amer 116 Est GFR (MDRD) Non-Af 96 BUN/Creatinine Ratio 9.2 L Glucose 93 Calcium 9.2 Serum , Qual NEGATIVE EKG Initial EKG: Attestation: I personally reviewed and interpreted this EKG as follows: Interpretation: Sinus Rhythm (Sinus at 76 with no acute ischemia. Sinus arrhythmia noted.) Treatment and Re-Evaluation Comments:: Test results reviewed and unremarkable. EKG reveals no ischemia or arrhythmia. D-dimer is negative. Patient be discharged with prescription for naproxen. Discharge Plan Triage Chief Complaint: Chest Pain ED Provider: Rowena Russo Dx/Rx/DC Orders Clinical Impression: Chest wall muscle strain Instructions: ED Strain Chest Wall Prescriptions: New naproxen [Naprosyn] 500 mg tablet 500 mg PO BID PRN (Reason: pain) Qty: 20 RF: 0 No Action etonogestrel-ethinyl estradiol 1 EACH ring 1 ea VG QMONTH RF: 0 Primary Care Provider: Colt Hardwick Referrals: Colt Hardwick MD [Primary Care Provider] - 1 Week if not improving Disposition Disposition: Home, Self Care
[2021-05-28 09:14] LABS: Anion Gap 10 (5-15); BUN 7 mg/dL (7-18); BUN/Creat Ratio 9.2 RATIO (10-20); Calcium,Total 9.2 mg/dL (8.5-10.1); Chloride 104 mmol/L (98-107); Creatinine, Serum 0.76 mg/dL (0.55-1.02); EST Glomerular Filtration Rate 96 mL/min (>60); Est Glom Filt Rate - Afr Amer 116 mL/min (>60); Estimated Creatinine Clearance 86.38 ml/min; Glucose 93 mg/dL (74-106); Potassium 3.8 mmol/L (3.5-5.1); Sodium Level 139 mmol/L (136-145)
[2021-05-28 09:16] LABS: D-Dimer Quantitative (DVT/PE) <= 0.27 FEU/ug/m (0.27-0.49)
[2021-05-28 09:33] LABS: Internal QC Validated? YES +Cl - CLEAR BKGD; Pregnancy, Serum, hCG Quali. NEGATIVE Negative
[2021-05-28] MEDS: Ketorolac 30 MG/ML Syringe IV (11:00)
[2021-05-28 11:02] VITALS: BP 139/76; PULSE 82; RESP 14; O2SAT 99
== END 2021-05-28 11:07 | disposition home or self-care (01) ==
PROVIDERS: Emergency Provider Emergency Medicine; PCP Family Medicine; Visit Provider Emergency Medicine
DX: S29.011A Strain of muscle and tendon of front wall of thorax, initial encounter (principal); X50.0XXA Overexertion from strenuous movement or load, initial encounter; Y93.9 Activity, unspecified; Y92.9 Unspecified place or not applicable; Z87.891 Personal history of nicotine dependence
CPT/HCPCS: 80048; 84703; 85379; 93005; 96374; 99284; A4216

== ENCOUNTER 2022-02-20 20:46 | Emergency (ER) | payer MEDICAID, SELFPAY ==
[2022-02-20 20:47] VITALS: BP 127/90; PULSE 78; RESP 18; TEMP 36.6; O2SAT 99; BMI 28.3
--- NOTE | 2022-02-20 20:51 | EKG12_ITS ---
Test Reason : CP Blood Pressure : / mmHG Vent. Rate : 070 BPM Atrial Rate : 070 BPM P-R Int : 118 ms QRS Dur : 078 ms QT Int : 356 ms P-R-T Axes : 024 013 023 degrees QTc Int : 384 ms Normal sinus rhythm with sinus arrhythmia Normal ECG Confirmed by ALBERTA FRENCH, HECTOR ([id number]), news videotape editor DIEGO CAMPBELL ([id number]) on 02/24/2022 10:10:25 AM Referred By: Confirmed By:MING PINZON MD
--- NOTE | 2022-02-20 20:55 | RAD_ITS ---
STUDY: X-RAY CHEST REASON FOR EXAM: Female, 31 years old. chest pain TECHNIQUE: AP portable COMPARISON: 08/29/2020 FINDINGS: The lungs are clear and expanded. There is no demonstrated pleural abnormality. Normal size heart. Normal mediastinum and yo. Normal visualized pulmonary arteries. Normal visualized aortic arch and descending thoracic aorta. Normal visualized thoracic spine. Normal visualized ribs, clavicles, and shoulders. There is no demonstrated abnormality of the visualized soft tissue structures of the upper abdomen. RAD/Chest 1 View (Portable) IMPRESSION: Normal x-ray examination of the chest. Electronically Signed: Romulo Arana MD at 21:27 EDT ,
[2022-02-20 21:43] LABS: Absolute Lymphocyte Count 3.79 X10^3/uL (0.83-4.51); Absolute Neutrophil Count 5.3 X10^3/uL (2.0-7.7); Basophil# 0.04 X10^3/uL; Basophil% 0.4 % (0-1); Eosinophil# 0.19 X10^3/uL; Eosinophils% 1.9 % (0-5); Hematocrit 40.4 % (37-47); Hemoglobin 13.5 g/dL (12.0-15.0); Lymphocyte # 3.79 X10^3/ul (0.83-4.51); Lymphocyte % 37.9 % (19-41); Mean Corp Hgb Conc 33.4 g/dL (32-36); Mean Corpuscular Hgb 28.8 pg (27.0-32.0); Mean Corpuscular Volume 86.1 fL (81-99); Mean Platelet Vol. 10.5 fl (6.2-12.0); Monocyte# 0.64 X10^3/uL; Monocyte% 6.4 % (0-10); NRBC Flagged by Analyzer 0 % (0-5); Neutrophil % 53.1 % (47-70); Platelet Count 317 K/mm3 (150-450); RBC Distribution Width CV 12.4 % (11.6-14.6); RBC Distribution Width SD 38.9 fl (35.1-43.9); Red Blood Count 4.69 M/mm3 (4.2-5.4)
[2022-02-20 21:59] LABS: Troponin-I HS < 3 pg/mL (3.0-54.0)
[2022-02-20 22:01] LABS: Anion Gap 9 (5-15); BUN 10 mg/dL (7-18); BUN/Creat Ratio 12.6 RATIO (10-20); Calcium,Total 9.6 mg/dL (8.5-10.1); Chloride 108 mmol/L (98-107); EST Glomerular Filtration Rate 90 mL/min (>60); Est Glom Filt Rate - Afr Amer 109 mL/min (>60); Estimated Creatinine Clearance 82.06 ml/min; Glucose 90 mg/dL (74-106); Potassium 3.9 mmol/L (3.5-5.1); Sodium Level 140 mmol/L (136-145)
[2022-02-20 22:49] VITALS: BP 162/88; PULSE 69; RESP 16; O2SAT 99
--- NOTE | 2022-02-20 23:18 | ED.VIS.CHEST ---
HPI History of Present Illness Chief Complaint: Chest Pain Informant: patient Narrative Narrative: Patient has been having episodic chest and upper abdominal discomfort for the last several weeks or a month. Most of the time it is right-sided, no dyspnea, not really pleuritic, sometimes radiates down her right arm and up into her right neck. Saw her PCP for it and placed on omeprazole 40 mg that she started 3 days ago, stating that she was taking [id number] omeprazole daily about 2 or 3 weeks prior to this. She has noticed no difference at this time, stating tonight it is on the left side of her chest feels like pressure, mildly pleuritic because it takes my breath away and she has discomfort down her left arm and into her left neck. No dyspnea. No palpitations or near syncope/syncope. No leg pain or swelling. No recent travel, immobilization, hospitalization, or surgery, no history of DVT or PE but clots run in the family. She denies any cough or hemoptysis. Her doctor put her on Prozac 3 days ago also because she is very anxious about all of this. She states almost daily, she has multiple episodes of this pain, and she also has nausea and vomiting that occurs either during or right after meals, but meals do not necessarily trigger any of the pain. She also states that she has lost about 70 pounds since August, and trying to lose weight and has been successful. She denies any bright red blood per rectum or melena. She has never had an EGD. [facility] Medical History (Updated 02/20/22 @ 23:[address] Tee Dubon MD) Anxiety GERD (gastroesophageal reflux disease) Home Medications fluoxetine 20 mg capsule 20 mg PO DAILY 02/20/22 [History Last Taken Unknown] omeprazole 40 mg capsule,delayed release 40 mg PO DAILY 02/20/22 [History Last Taken Unknown] hyoscyamine sulfate 0.125 mg sublingual tablet 0.125 mg PO BID PRN dyspepsia #20 tabs 02/21/22 [Rx Last Taken Unknown] ondansetron 4 mg disintegrating tablet 8 mg PO Q8H PRN PRN Nausea #16 tabs 02/21/22 [Rx Last Taken Unknown] sucralfate 1 gram tablet 1 g PO .qid #28 tabs 02/21/22 [Rx Last Taken Unknown] Allergy/AdvReac Type Severity Reaction Status Date / Time No Known Allergies Allergy Verified 02/20/22 20:50 Surgical History (Updated 02/20/22 @ 23:[address] Tee Dubon MD) H/O elbow surgery S/P tonsillectomy Social History Smoking Status: Former smoker ROS ROS ED Constitutional Constitutional ED: Denies chills or fever(s) Eyes Eyes: Denies change in vision or diplopia ENT ENT ED: Denies rhinorrhea or sore throat Cardiovascular Cardiovascular: Reports chest pain; Denies palpitations Respiratory/Chest Respiratory/Chest: Denies cough or dyspnea Gastrointestinal Gastrointestinal: Reports abdominal pain, nausea and vomiting; Denies diarrhea Genitourinary Genitourinary ED: Denies dysuria or hematuria Musculoskeletal Musculoskeletal: Reports extremity pain; Denies back pain or neck pain Integumentary Denies abscess or rash Neurologic Neurologic: Denies headache(s), paresthesias or weakness Psychiatric Psychiatric: Reports anxiety; Denies suicidal thoughts EXAM Physical Exam Const Vital Signs: 02/20/22 20:47 02/20/22 22:46 02/20/22 22:49 Temperature 97.9 F Temperature Source Temporal Pulse Rate 78 69 Respiratory Rate 18 16 Respiratory Effort Normal Non-Labored Blood Pressure 127/90 H 162/88 H Blood Pressure Mean 102 112 Pulse Ox 99 99 Oxygen Delivery Method Room Air Room Air Positive well nourished and well developed General Appearance ED: well developed and NAD HEENT Reports moist mucous membranes normocephalic and atraumatic Eyes PERRL and EOMs intact bilaterally Neck full ROM and supple Resp normal respiratory effort and clear to auscultation bilaterally Cardio regular rate, regular rhythm and no murmurs Rate: Negative for tachycardic Peripheral Pulses: pulses 2+ throughout GI non-distended GI Narrative: Epigastric tenderness, also mildly tender upper quadrants. Negative Mckay's. Otherwise benign. Auscultation: normoactive bowel sounds Palpation: soft Back/Spine no CVA tenderness General Back: other FROM Extremity normal to inspection, no calf tenderness and no pedal edema General Extremety ED: Negative for edema, pulses abnormal or tenderness General Extremity: Negative for edema or pulses abnormal Neuro oriented x3, CN's II-XII intact bilaterally and no sensory deficits noted Sensorium / Orientation: awake and alert Motor Exam: strength 5/5 throughout Psych mental status grossly normal Mood & Affect: anxious Skin no rashes or lesions noted and no wounds Heart Score History: Moderately Suspicious ECG: Normal Age: </= 45 years Risk Factors: No Risk Factors Troponin: </= Normal Limit Score: 1 MDM MDM MDM Narrative Medical decision making narrative: Patient had a cardiac work-up here including troponin which is less than 3, and all of the work-up is normal. 1 view chest x-ray my interpretation normal. EKG normal. Reassured the patient this is unlikely to be cardiac in nature, and much more likely to be GI in nature given all of her symptoms. Her PERC score is 0, she is 99% on room air, and I reassured her this does not sound like a PE to me, she was very concerned about blood clots. She has never had a DVT nor does she have clinical suspicion for 1 at this time. PE does not typically radiate discomfort to the arm and neck. Esophageal discomfort can. Differential here includes reflux, esophageal spasm, achalasia, peptic ulcer disease, gastritis, hiatal hernia, this is not exclusive differential. We will treat the patient here with a GI cocktail, Levsin, and sucralfate. If these help somewhat we will give her prescriptions for Levsin and sucralfate and advise close outpatient follow-up with her PCP and I will refer her to GI as well. The medications did take her chest and arm discomfort away, she felt nauseated she she was given Zofran prior to discharge. Lab Data Attestation: I reviewed the patient's lab results. Labs: Laboratory Results - last 24 hr 02/20/22 02/20/22 02/20/22 21:30 21:30 21:30 WBC 10.0 RBC 4.69 Hgb 13.5 Hct 40.4 MCV 86.1 MCH 28.8 MCHC 33.4 RDW Std Deviation 38.9 RDW Coeff of Aracely 12.4 Plt Count 317 MPV 10.5 Immature Gran % (Auto) 0.300 Neut % (Auto) 53.1 Lymph % (Auto) 37.9 [place] % (Auto) 6.4 Eos % (Auto) 1.9 Baso % (Auto) 0.4 Absolute Neuts (auto) 5.3 Absolute Lymphs (auto) 3.79 Nucleated RBC % 0 Sodium 140 Potassium 3.9 Chloride 108 H Carbon Dioxide 23.0 Anion Gap 9 BUN 10 Creatinine 0.80 Estim Creat Clear Calc 82.06 Est GFR (MDRD) Af Amer 109 Est GFR (MDRD) Non-Af 90 BUN/Creatinine Ratio 12.6 Glucose 90 Calcium 9.6 Troponin I High Sens < 3 L Radiography Chest X-Ray - ED: 1 View, Read by ED Physician, Normal and No Infiltrates Diagnostic Testing: Clinical Impression(s) from Imaging Studies Chest X-Ray 02/20/22 20:55 IMPRESSION: Normal x-ray examination of the chest. Electronically Signed: Romulo Arana MD at 21:27 EDT , Rhythm Strip Rhythm Strip: Sinus Rhythm Rate: 70 Ectopy: None EKG Initial EKG: Attestation: I personally reviewed and interpreted this EKG as follows: Interpretation: No Acute Injury Pattern and Sinus Arrythmia (Otherwise normal EKG) Discharge Plan Triage Chief Complaint: Chest Pain ED Provider: Tee Dubon Dx/Rx/DC Orders Clinical Impression: Chest pain, unspecified, Acute epigastric pain, Postprandial vomiting Instructions: ED Chest Pain, Noncardiac, ED Epigastric Pain Uncertain Cause Prescriptions: New ondansetron [ondansetron] 4 mg tablet,disintegrating 8 mg PO Q8H PRN PRN (Reason: Nausea) Qty: 16 0RF hyoscyamine sulfate 0.125 mg tablet, sublingual 0.125 mg PO BID PRN (Reason: dyspepsia) Qty: 20 0RF sucralfate 1 gram tablet 1 g PO .qid Qty: 28 0RF No Action omeprazole 40 mg capsule,delayed release(DR/EC) 40 mg PO DAILY Label Comments: take 1 capsule by mouth once daily fluoxetine 20 mg capsule 20 mg PO DAILY Label Comments: take 1 capsule by mouth once daily Primary Care Provider: Colt Hardwick Referrals: Colt Hardwick MD [Primary Care Provider] - As soon as possible Friend,Sanjay, [Med Staff - Active Staff] - (call for appt) Disposition Disposition: Home, Self Care
[2022-02-20] MEDS: Hyoscyamine Sulfate 0.125 MG Tablet 0.25 MG PO (23:30)
[2022-02-20] MEDS: Sucralfate 1 GM Tablet PO (23:30)
[2022-02-20] MEDS: Mag Hydrox/Al Hydrox/Simeth 30 ML UDC PO (23:31)
[2022-02-21] MEDS: Ondansetron ODT 4 MG Tablet 8 MG PO (00:44)
[2022-02-21 00:47] VITALS: PULSE 67; RESP 15; O2SAT 99
== END 2022-02-21 00:47 | disposition home or self-care (01) ==
PROVIDERS: Emergency Provider Emergency Medicine; PCP Family Medicine; Visit Provider Emergency Medicine
DX: R07.9 Chest pain, unspecified (principal); R11.10 Vomiting, unspecified; R10.13 Epigastric pain; Z87.891 Personal history of nicotine dependence; K21.9 Gastro-esophageal reflux disease without esophagitis; F41.9 Anxiety disorder, unspecified
CPT/HCPCS: 71045; 80048; 84484; 85025; 93005; 99283; A4216

== ENCOUNTER 2022-03-28 23:32 | Emergency (ER) | payer MEDICAID, SELFPAY ==
[2022-03-28 23:33] VITALS: BP 154/98; PULSE 65; RESP 16; TEMP 36.3; O2SAT 97; BMI 27.2
--- NOTE | 2022-03-29 00:03 | CT_ITS ---
STUDY: CT HEAD W/O CONTRAST INJECTION REASON FOR EXAM: Female, 31 years old. Pain Headache since Thursday, worsening. RADIATION DOSAGE (If Supplied By Facility): CTDIvol = ( 44.99 ) mGy, DLP = ( 762.36 ) mGycm TECHNIQUE: Transaxial CT imaging of the brain was performed without administration of intravenous contrast material. Individualized dose optimization techniques were used for this CT. COMPARISON: CT head 05/24/2020. FINDINGS: BRAIN: No acute bleed. No edema. Simpson-white matter differentiation is maintained. VENTRICLES AND SULCI: Not dilated. EXTRA-AXIAL: No hemorrhage, fluid collection, or mass. CALVARIUM / SKULL BASE: Unremarkable. FACE/SINUSES: Unremarkable. SOFT TISSUES: Unremarkable. CT/Brain/Head without Contrast IMPRESSION: No acute abnormality. Electronically Signed: Kiarra Watson MD at 1:14 EST ,
--- NOTE | 2022-03-29 00:03 | EX.ED.VIS.HA ---
HPI History of Present Illness Chief Complaint: Headache Informant: patient Onset/Context/Timing Onset: Days (6) Timing: Continuous Quality -Headache: Positive for Tightness Location: Left side of head Worsened by: Nothing Relieved by: Nothing Associated Symptoms/Injury Associated Symptoms: Positive for Nausea and Blurred Vision (Left eye); Negative for Fever, Vomiting, Sore Throat, Sinus Pressure, Numbness, Tingling, Preceding Aura, Visual Changes, Photophobia or Visual Loss Narrative Narrative: Patient presents with a headache that has been getting progressively worse over the past 6 days. Patient states it started in the occipital area but is now mainly on the left side of her head. Patient describes it as a pressure and tightness. Patient states it is only on the left side of her head. Patient states nothing makes it worse and nothing makes it better. Patient admits to some nausea today. Patient denies any vomiting. Patient denies any fevers or chills. Patient admits to some blurred vision out of her left eye. Patient denies any photophobia or scotoma. Patient denies any history of migraine headaches. [facility] Medical History Anxiety GERD (gastroesophageal reflux disease) Home Medications fluoxetine 20 mg capsule 20 mg PO DAILY 02/20/22 [History Last Taken Unknown] pantoprazole 40 mg tablet,delayed release 40 mg PO DAILY 03/28/22 [History Last Taken Unknown] Allergy/AdvReac Type Severity Reaction Status Date / Time No Known Allergies Allergy Verified 02/20/22 20:50 Surgical History H/O elbow surgery S/P tonsillectomy Social History Smoking Status: Former smoker ROS ROS ED Constitutional Constitutional ED: Denies chills or fever(s) Eyes Eyes: Reports blurry vision left; Denies diplopia ENT ENT ED: Denies rhinorrhea or sore throat Cardiovascular Cardiovascular: Denies chest pain or palpitations Respiratory/Chest Respiratory/Chest: Denies cough or dyspnea Gastrointestinal Gastrointestinal: Reports nausea; Denies vomiting Genitourinary Genitourinary ED: Denies dysuria or hematuria Musculoskeletal Musculoskeletal: Denies back pain or neck pain Integumentary Denies abscess or rash Neurologic Neurologic: Reports headache(s); Denies weakness Allergic/Immunologic Allergic/Immunologic ED: Denies mouth swelling or urticaria EXAM Physical Exam Const Vital Signs: 03/28/22 23:33 Temperature 97.3 F L Temperature Source Temporal Pulse Rate 65 Respiratory Rate 16 Blood Pressure 154/98 H Blood Pressure Mean 116 Pulse Ox 97 Oxygen Delivery Method Room Air Positive well nourished and well developed General Appearance ED: well developed and NAD HEENT Reports moist mucous membranes atraumatic; Negative for temporal artery tenderness Eyes PERRL and EOMs intact bilaterally Eyes Narrative: Funduscopic examination was benign bilaterally. There is no papilledema noted. Neck supple, no meningeal signs and no JVD Resp normal respiratory effort and clear to auscultation bilaterally Cardio regular rate, regular rhythm and no murmurs GI normal to inspection, nondistended, normoactive bowel sounds and non-tender Palpation: soft Extremity normal to inspection General Extremety ED: Negative for edema or tenderness General Extremity: Negative for edema Neuro oriented x3, CN's II-XII intact bilaterally and no sensory deficits noted Sensorium / Orientation: alert Motor Exam: strength 5/5 throughout Psych mental status grossly normal Skin no rashes or lesions noted MDM MDM MDM Narrative Medical decision making narrative: Patient was given IV fluids, Reglan, and Benadryl. CT scan of the brain was obtained. There is no acute intracranial abnormality. This was interpreted by the radiologist and reviewed by myself. Patient is feeling better on reevaluation. Patient wants to go home. Patient was instructed to rest in a dark quiet room. Patient was instructed to follow-up with her primary care physician in 5 to 7 days. Patient understood and was agreeable with the plan. All questions were answered. Radiography Diagnostic Testing: Clinical Impression(s) from Imaging Studies Brain CT 03/29/22 00:03 IMPRESSION: No acute abnormality. Electronically Signed: Kiarra Watson MD at 1:14 EST , Discharge Plan Triage Chief Complaint: Headache ED Provider: Trae Griffin Dx/Rx/DC Orders Clinical Impression: Headache Instructions: ED Headache Unspecified Prescriptions: No Action fluoxetine 20 mg capsule 20 mg PO DAILY Label Comments: take 1 capsule by mouth once daily pantoprazole 40 mg tablet,delayed release (DR/EC) 40 mg PO DAILY Primary Care Provider: Colt Hardwick Referrals: Colt Hardwick MD [Primary Care Provider] - 3-5 Days Disposition Disposition: Home, Self Care
[2022-03-29] MEDS: 0.9% Normal Saline 1,000 ML 999 ML IV (00:14)
[2022-03-29] MEDS: DiphenhydrAMINE 50 MG/ML Syringe 25 MG IV (00:16)
[2022-03-29] MEDS: Metoclopramide 10 MG/2 ML Vial IV (00:16)
== END 2022-03-29 01:28 | disposition home or self-care (01) ==
PROVIDERS: Emergency Provider Emergency Medicine; PCP Family Medicine; Visit Provider Emergency Medicine
DX: R51.9 Headache, unspecified (principal); R11.0 Nausea; Z87.891 Personal history of nicotine dependence; F41.9 Anxiety disorder, unspecified; K21.9 Gastro-esophageal reflux disease without esophagitis
CPT/HCPCS: 70450; 99283; J7030; A4216

== ENCOUNTER 2022-08-27 09:33 | Emergency (ER) | payer MEDICAID, SELFPAY ==
[2022-08-27 09:34] VITALS: BP 112/76; PULSE 89; RESP 16; TEMP 36.6; O2SAT 99; BMI 26.9
--- NOTE | 2022-08-27 09:46 | US_ITS ---
STUDY: ABDOMINAL ULTRASOUND - RIGHT UPPER QUADRANT REASON FOR VISIT: Female, 32 years old RUQ pain TECHNIQUE: Ultrasound evaluation of the right upper quadrant was performed with real-time and static claros-scale imaging. TECHNICAL QUALITY: Adequate. COMPARISON: None. FINDINGS: Liver: The liver measures 18.3 cm. There is normal echogenicity of the liver. The bile ducts are within normal limits. There is hepatic color flow. The direction of portal flow is hepatopetal. There is no demonstrated mass lesion. Gallbladder: Normal distended gallbladder. The gallbladder wall measures 2.1 mm. There is a negative sonographic Mckay''s sign. There is no pericholecystic fluid. There are 2 large gallstones measuring 2.4 x 1.7 x 1.7 cm and 1.7 x 2.0 x 1.5 cm. Common Bile Duct (C.B.D.): The common bile duct measures 4.2 mm. Pancreas: Normal size of the head, body and tail of the pancreas. There is normal echogenicity of the pancreas. There is no demonstrated pancreatic mass or cyst. The pancreatic duct is not dilated. Right Kidney: Normal size of the right kidney. The right kidney measures 10.5 x 5.3 x 4.5 cm. Normal renal cortex. The right cortex measures 1.2 cm. There is no demonstrated renal mass or cyst. There is no right hydronephrosis. US/Gallbladder IMPRESSION: 2 large gallstones but no gallbladder wall thickening, no pericholecystic fluid and negative sonographic Mckay''s sign. Electronically Signed: Alexandr Valdez MD at 11:38 EDT ,
--- NOTE | 2022-08-27 09:48 | EX.ED.DYSGE1 ---
HPI History of Present Illness Chief Complaint: Abd Pain Informant: patient Onset/Context/Timing Onset: Days (3 days) Context: Gradual Onset Timing: Waxes and wanes Current Severity: Moderate Maximum Severity: Moderate Narrative Narrative: Patient presents with 3-day history of upper quadrant pain that wraps around to the right flank region. She reports nausea and vomiting and today has not been able to keep anything down. She denies fever or chills. She states her GI doctor told her in the past that she had some gallstones and may need to have her gallbladder out at some point. She has not had recent imaging. She does report increased nausea and diarrhea with any p.o. intake. [facility] Medical History Anxiety GERD (gastroesophageal reflux disease) Home Medications fluoxetine 20 mg capsule 20 mg PO DAILY 02/20/22 [History Last Taken Unknown] pantoprazole 40 mg tablet,delayed release 40 mg PO DAILY 03/28/22 [History Last Taken Unknown] hydrocodone-acetaminophen 5-325mg 5mg-325mg 1 tab PO Q6H PRN PRN Pain 3 days #10 TABLETS 08/27/22 [Rx Last Taken Unknown] ondansetron 4 mg disintegrating tablet 4 mg PO Q8H PRN PRN Nausea #10 tabs 08/27/22 [Rx Last Taken Unknown] Allergy/AdvReac Type Severity Reaction Status Date / Time amitriptyline Allergy Hives Verified 08/27/22 09:33 doxycycline Allergy Hives Verified 08/27/22 09:33 Surgical History H/O elbow surgery S/P tonsillectomy Social History Smoking Status: Former smoker ROS ROS ED Constitutional Constitutional ED: Denies chills or fever(s) Eyes Eyes: Denies change in vision or discharge from eye(s) ENT ENT ED: Denies discharge from eye(s), rhinorrhea or sore throat Cardiovascular Cardiovascular: Denies chest pain or palpitations Respiratory/Chest Respiratory/Chest: Denies cough or dyspnea Gastrointestinal Gastrointestinal: Reports abdominal pain, diarrhea, nausea and vomiting Genitourinary Genitourinary ED: Denies dysuria Musculoskeletal Musculoskeletal: Reports back pain; Denies extremity pain Integumentary Denies Abrasions or rash Neurologic Neurologic: Denies headache(s) or weakness Allergic/Immunologic Allergic/Immunologic ED: Denies lip swelling or urticaria EXAM Physical Exam Const Vital Signs: 08/27/22 09:34 Temperature 97.8 F Temperature Source Temporal Pulse Rate 89 Respiratory Rate 16 Blood Pressure 112/76 Blood Pressure Mean 88 Pulse Ox 99 Oxygen Delivery Method Room Air Positive well nourished and well developed General Appearance ED: well developed HEENT Reports normocephalic and head/scalp atraumatic Eyes PERRL and EOMs intact bilaterally Neck supple Chest Wall inspection of chest normal and palpation of chest normal Resp normal respiratory effort and clear to auscultation bilaterally Cardio regular rate and regular rhythm GI GI Narrative: Right upper quadrant tenderness to palpation. No guarding or rebound. Auscultation: hypoactive bowel sounds Palpation: soft Extremity normal to inspection Neuro oriented x3 and no sensory deficits noted Sensorium / Orientation: alert Motor Exam: strength 5/5 throughout Psych mental status grossly normal Skin no rashes or lesions noted MDM MDM MDM Narrative Medical decision making narrative: Patient is given morphine and Zofran for pain and nausea. Labwork obtained to evaluate for leukocytosis, anemia, and electrolyte derangement. Right upper quadrant ultrasound obtained. Lab Data Attestation: I reviewed the patient's lab results. Labs: Laboratory Results - last 24 hr 08/27/22 08/27/22 08/27/22 10:07 10:07 10:07 WBC 8.2 RBC 4.86 Hgb 14.0 Hct 42.6 MCV 87.7 MCH 28.8 MCHC 32.9 RDW Std Deviation 39.5 RDW Coeff of Aracely 12.3 Plt Count 271 MPV 9.9 Immature Gran % (Auto) 0.500 Neut % (Auto) 79.9 H Lymph % (Auto) 13.5 L Bonner % (Auto) 4.0 Eos % (Auto) 1.6 Baso % (Auto) 0.5 Absolute Neuts (auto) 6.6 Absolute Lymphs (auto) 1.11 Nucleated RBC % 0 Sodium 138 Potassium 3.5 Chloride 108 H Carbon Dioxide 24.0 Anion Gap 6 BUN 13 Creatinine 0.69 Estim Creat Clear Calc 94.29 Est GFR (MDRD) Af Amer 129 Est GFR (MDRD) Non-Af 107 BUN/Creatinine Ratio 19.0 Glucose 92 Calcium 8.7 Total Bilirubin 0.70 Direct Bilirubin 0.21 AST 13 L ALT 20 Alkaline Phosphatase 55 Total Protein 7.2 Albumin 3.4 Globulin 3.8 Lipase 20 Serum , Qual NEGATIVE Radiography Diagnostic Testing: Clinical Impression(s) from Imaging Studies Gallbladder Ultrasound 08/27/22 09:46 IMPRESSION: 2 large gallstones but no gallbladder wall thickening, no pericholecystic fluid and negative sonographic Mckay''s sign. Electronically Signed: Alexandr Valdez MD at 11:38 EDT , Differential Diagnosis Abdominal Pain: Cholecystitis Reason(s) Cholecystitis less likely: NL Gall Bladder on imagng studies and Pancreatitis Reason(s) Pancreatitis less likely: NL lab values Treatment and Re-Evaluation :: CBC and chemistry studies unremarkable. LFTs and lipase normal. test negative. Right upper quadrant ultrasound does reveal 2 gallstones, however no gallbladder wall thickening or pericholecystic fluid is noted. There is no sonographic Mckay sign. On repeat evaluation patient states she had been feeling improved but her pain is starting to return. She will be redosed with pain medication. I will treat her with [place] and Zofran at home. She will be referred to surgery for outpatient follow-up at her convenience. I believe she likely has more of a viral gastroenteritis causing her symptoms as there does not appear to be an acute inflammation of her gallbladder. Return instructions are given. Discharge Plan Triage Chief Complaint: Abd Pain ED Provider: Rowena Russo Dx/Rx/DC Orders Clinical Impression: Gastroenteritis, Abdominal pain Instructions: ED Abdominal Pain Unkn Cause Fem, ED Gastroenteritis, Viral (Adult) Prescriptions: New ondansetron 4 mg tablet,disintegrating 4 mg PO Q8H PRN PRN (Reason: Nausea) Qty: 10 0RF hydrocodone-acetaminophen 5-325 mg tablet 1 tab PO Q6H PRN PRN (Reason: Pain) 3 Days Qty: 10 0RF No Action fluoxetine 20 mg capsule 20 mg PO DAILY Label Comments: take 1 capsule by mouth once daily pantoprazole 40 mg tablet,delayed release (DR/EC) 40 mg PO DAILY Primary Care Provider: Colt Hardwick Referrals: Colt Hardwick MD [Primary Care Provider] - William Higgins MD [Med Staff - Active Staff] - As Needed Disposition Disposition: Home, Self Care
[2022-08-27] MEDS: Morphine 4 MG/ML Syringe IV ×2 (10:02→11:56)
[2022-08-27] MEDS: Ondansetron 4 MG/2 ML Vial IV ×2 (10:02→11:56)
[2022-08-27] MEDS: 0.9% Normal Saline 1,000 ML 150 ML IV (10:06)
[2022-08-27 10:18] LABS: Absolute Lymphocyte Count 1.11 X10^3/uL (0.83-4.51); Absolute Neutrophil Count 6.6 X10^3/uL (2.0-7.7); Basophil# 0.04 X10^3/uL; Basophil% 0.5 % (0-1); Eosinophil# 0.13 X10^3/uL; Eosinophils% 1.6 % (0-5); Hematocrit 42.6 % (37-47); Lymphocyte # 1.11 X10^3/ul (0.83-4.51); Lymphocyte % 13.5 % (19-41); Mean Corp Hgb Conc 32.9 g/dL (32-36); Mean Corpuscular Hgb 28.8 pg (27.0-32.0); Mean Corpuscular Volume 87.7 fL (81-99); Mean Platelet Vol. 9.9 fl (6.2-12.0); Monocyte# 0.33 X10^3/uL; NRBC Flagged by Analyzer 0 % (0-5); Neutrophil # 6.56 X10^3/uL (2.7-7.7); Neutrophil % 79.9 % (47-70); Platelet Count 271 K/mm3 (150-450); RBC Distribution Width CV 12.3 % (11.6-14.6); RBC Distribution Width SD 39.5 fl (35.1-43.9); Red Blood Count 4.86 M/mm3 (4.2-5.4); White Blood Count 8.2 K/mm3 (4.4-11.0)
[2022-08-27 10:34] LABS: AST(SGOT) 13 U/L (15-37); Alanine Aminotransfer ALT/SGPT 20 U/L (13-56); Albumin, Serum 3.4 g/dL (3.2-5.0); Alkaline Phosphatase 55 U/L (45-117); Anion Gap 6 (5-15); BUN 13 mg/dL (7-18); Bilirubin, Direct 0.21 mg/dL (0.00-0.30); Calcium,Total 8.7 mg/dL (8.5-10.1); Chloride 108 mmol/L (98-107); Creatinine, Serum 0.69 mg/dL (0.55-1.02); EST Glomerular Filtration Rate 107 mL/min (>60); Est Glom Filt Rate - Afr Amer 129 mL/min (>60); Estimated Creatinine Clearance 94.29 ml/min; Globulin 3.8 g/dL (2.2-4.2); Glucose 92 mg/dL (74-106); Lipase 20 U/L (13-75); Potassium 3.5 mmol/L (3.5-5.1); Protein, Total 7.2 g/dL (6.4-8.2); Sodium Level 138 mmol/L (136-145)
[2022-08-27 10:42] LABS: Internal QC Validated? YES +Cl - CLEAR BKGD; Pregnancy, Serum, hCG Quali. NEGATIVE Negative
[2022-08-27 11:33] VITALS: RESP 16
== END 2022-08-27 12:12 | disposition home or self-care (01) ==
PROVIDERS: Emergency Provider Emergency Medicine; PCP Family Medicine; Visit Provider Emergency Medicine
DX: K52.9 Noninfective gastroenteritis and colitis, unspecified (principal); Z87.891 Personal history of nicotine dependence; K21.9 Gastro-esophageal reflux disease without esophagitis; F41.9 Anxiety disorder, unspecified
CPT/HCPCS: 76705; 80048; 80076; 83690; 84703; 85025; 96361; 96374; 96375; 96376; 99283; J7030; A4216; J2405

== ENCOUNTER 2022-09-03 11:14 | Day surgery (SDC) | payer MEDICAID, SELFPAY ==
[2022-09-03] VITALS (10 sets, daily range): BP systolic 111–134; BP diastolic 73–98; PULSE 63–87; RESP 16–18; TEMP 36.4–36.9; O2SAT 97–100; BMI 25.6
[2022-09-03 11:58] LABS: Internal QC Validated? YES +Cl - CLEAR BKGD; Pregnancy, Urine Negative Negative
--- NOTE | 2022-09-03 12:00 | PCM.HP.BLA ---
History and Physical Date of Admission: 09/03/22 Date of Service:? 08/28/22 MR#: [id number] Acct: [id number] Name:BACILIO GARDNER Rep #: [id number] : 1990 ? ? Provider: Dr. William Higgins MD Age/Sex:? 32/F ? ? Location: [facility] Status: Signed Intake Vital Signs ? 08/27/2308:34 08/28/2313:57 Height 5 ft 2 in 5 ft 2 in Weight: 147 lb 9.6 oz 144 lb 2 oz BMI 26.9 26.3 BP 112/76 130/85 H Blood Pressure Location ? Rt radial Position ? Sitting Respiration 16 18 Pulse 89 68 Pulse Source ? Monitor Temp 97.8 F 97.4 F L Temp Source Temporal Temporal Pulse Oximetry (%) 99 98 Oxygen Delivery Method ? room air Intake Visit Reasons:?HOSPITAL FU-GALLSTONES Chief Complaint: Hospital F/U-gallstones [employer] Associate Required: No Is patient in pain?: Yes Allergies amitriptyline Allergy (Verified 08/28/22 14:58) Hivesdoxycycline Allergy (Verified 08/28/22 14:58) Hives Medications fluoxetine 20 mg capsule 20 mg PO DAILY 02/20/22 [History Confirmed 08/28/22] pantoprazole 40 mg tablet,delayed release 40 mg PO DAILY 03/28/22 [History Confirmed 08/28/22] hydrocodone-acetaminophen 5-325mg 5mg-325mg 1 tab PO Q6H PRN PRN Pain 3 days #10 TABLETS 08/27/22 [Rx Confirmed 08/28/22] ondansetron 4 mg disintegrating tablet 4 mg PO Q8H PRN PRN Nausea #10 tabs 08/27/22 [Rx Confirmed 08/28/22] etonogestrel 0.12 mg-ethinyl estradiol 0.015 mg/24 hr vaginal ring 1 vag ring vaginal Q4W 08/28/22 [History Confirmed 08/28/22] PFSH Medical History? Anxiety GERD (gastroesophageal reflux disease) Surgical History? H/O elbow surgery S/P tonsillectomy Social History? Smoking Status:? Former smoker HPI HPI HPI: Patient is a 32-year-old female who presents for ER follow-up after a presentation yesterday (08/27/2022) for complaints of abdominal pain x3 days.? They are referred for surgical consultation from emergency medicine. ? Pain is described as occurring off and on and seems to be worse throughout the night.? It is associated with some radiation to her right back.? Additional symptoms include: Nausea and vomiting.? Patient reports vomitus consists of either the food she previously ingested or bile.? She reports that following ER visit yesterday she still got sick and experience more pain at approximately 5 AM this morning.? She denies similar symptoms in the past, but does admit to a history of abdominal pain for a few months and a prior evaluation with gastroenterology.? She was informed that the sphincter between her stomach and esophagus was not closing appropriately.? She denies any manometric testing for this issue, but reports a history of an EGD.? She states that she was placed on pantoprazole, but efforts are currently underway to wean this medication.? She notes that this pain was distinct from the pain she currently feels as this pain felt like a heart attack.? She also reports that she has several school-aged children, but denies any sick contacts.? 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 Lastly, she reports a rather recent weight loss where she very intentionally undertook increased activity and close monitoring of her dietary intake from August 2021 to February 2022 which resulted in a weight loss of greater than 80 pounds. Patient's only prior abdominal surgical history was a remotely Previous work-up has included: Right upper quadrant ultrasound was performed in the ER on 08/27/2022.? This demonstrated a normal distended gallbladder.? The gallbladder wall measured 2.1 cm.? There was a negative sonographic Mckay sign.? There was no pericholecystic fluid.? 2 large gallstones measuring 2.4 x 1.7 x 1.7 and 1.7 x 2.0 x 1.5 cm were identified.? Common bile duct measured 4.2 mm.? Further patient had a CBC showing no leukocytosis (but there was a mild left shift at 79%) and LFTs were all within normal limits. ROS General General: No weight change, appetite, fatigue, colon cancer, breast cancer or weakness HEENT HEENT: No difficulty swallowing, eye injury, eye surgery, swollen glands or hoarseness Endo Endocrine: No thyroid disease, diabetes mellitus, thyroid cancer, Hair loss, heat intolerance or cold intolerance Skin Skin: No rash or changing moles Breast Breast: No left breast lump, right breast lump, nipple discharge, breast pain, abnormal mammogram, abnormal US or breast enlargement Musc Musculoskeletal: No back problems, arthritis, rheumatoid arthritis, gout or joint pain Cardio Cardiovascular: No murmur, pacemaker, heart disease, atrial fibrillation, high blood pressure, heart attack, heart stent, palpitations, shortness of breat with exertion or chest pain Psych Psychiatric: Yes anxiety; No depression or hearing voices Resp Respiratory: No shortness of breath, No sleep apnea, No cough, No COPD, No asthma, No emphysema and No wheezing Gastro Gastrointestinal: Yes abdominal pain, Yes nausea or vomiting, Yes diarrhea, Yes constipation, No blood in stool, Yes acid reflux, No hemorrhoids, No ulcers, Yes gallbladder problem and No black,tarry stools Richie Hematologic: No blood thinners, No blood disorders, No bleeding, No anemia and No blood clots Neuro Neurologic: No system reviewed and no additional complaints, except as documented, No as per HPI, No abnormal gait, No abnormal hearing, No abnormal movements, No abnormal speech, No behavioral changes, No burning sensations, No confusion, No convulsions, No disequilibrium, No dizziness, No localized weakness, No frequent falls, No headache(s), No lack of coordination, No loss of vision, No memory loss, No numbness, No other visual disturbances, No radicular pain, No restless legs, No sensory deficit, No syncope, No tingling, No tremor(s), No weakness and No other Exam Const General: cooperative and anxious Orientation: alert, awake and oriented x3 Resp Effort & Inspection: normal respiratory effort GI Other: Abdominal striae present with redundant skin.? Nondistended.? Soft and tender to palpation across the right upper quadrant.? Negative Mckay sign. Assessment and Plan Assessment and Plan (1) Abdominal pain: ?Status:?Acute (2) Symptomatic cholelithiasis: ?Status:?Acute ?Comment: Is a 32-year-old female who was referred following an ER visit yesterday, 08/27/2022.? She describes a recent 3-day period of right upper quadrant abdominal pain its been associated with nausea and vomiting.? Although I find her vomiting reports to be somewhat atypical for a presentation of biliary colic, her other descriptions are consistent.? Further, her exam is consistent with discomfort from the gallbladder.? Ultrasound from 08/27/2022 was reviewed and patient does have several large gallstones.? I suspect the stones are intermittently occluding the neck of the gallbladder resulting in visceral pain response.? I therefore believe patient would benefit from a cholecystectomy.? This impression was shared with patient and she eagerly agrees and requests surgery as soon as possible.? She states that the symptoms are significantly and negatively impacting her ability to perform her duties at work.? She requests a work note to notify her employer of her health issues.? I have discussed with her that we will look to add her for the next available operative date and will work with her to provide clearance through her employer. ?Plan: ? Laparoscopic cholecystectomy with intraoperative cholangiography (procedure described and drawings were made to facilitate understanding) at first mutually agreeable date.? Procedure to be planned for with an outpatient disposition I have examined the patient and the H&P has been reviewed. There are no clinical changes since date of exam. Patient presents to surgery today with her parents. She expresses some mild anxiety regarding the procedure but denies any questions. Still, I have reviewed the expectations for the procedure as well as her postoperative recovery. Patient expresses appreciation for her care to this point and we will therefore proceed to the operating room for laparoscopic cholecystectomy with intraoperative cholangiogram as discussed above.
--- NOTE | 2022-09-03 12:06 | EKG12_ITS ---
Test Reason : PRE-OP Blood Pressure : / mmHG Vent. Rate : 058 BPM Atrial Rate : 058 BPM P-R Int : 124 ms QRS Dur : 086 ms QT Int : 398 ms P-R-T Axes : 019 -05 014 degrees QTc Int : 390 ms Sinus bradycardia with sinus arrhythmia Otherwise normal ECG When compared with ECG of 20-FEB-2022 20:50, No significant change was found Confirmed by FLORENCIO FRENCH, YESY ([id number]), news assignment editor DIEGO CAMPBELL ([id number]) on 09/05/2022 8:26:33 AM Referred By: William Higgins Confirmed By:YESY MATIAS MD
[2022-09-03] MEDS: Lactated Ringers 1,000 ML 15 ML IV (12:17)
--- NOTE | 2022-09-03 13:00 | GALL_PTH ---
PATIENT: BACILIO STEVEN [place] [facility] [place][id number] AGE/SX: 32/F ROOM: RE09/03/[address]: Dr. William Higgins MD : 1990 BED: DIS: 09/03/2022 SPEC #: [id number] RECD: 09/03/22 15:14 STATUS: ALYX LIMA #: [id number] KONG: 09/03/22 13:[address]: William Higgins DEPT: SURGICAL PATHOLOGY RECD BY: Aey Navas ENTERED: 09/04/22 10:11 SP TYPE: JEREMI FLORES DR: Dr. Colt Hardwick MD Tissues: Gallbladder, NOS Procedures: Surgery Specimen Level III HEADER OPERATION: Laparoscopic cholecystectomy with IOC PRE-OP DIAGNOSIS: Abdominal pain, symptomatic cholelithiasis TISSUE SUBMITTED: Gallbladder MICROSCOPIC DIAGNOSIS Gallbladder, cholecystectomy: Chronic cholecystitis and cholelithiasis. AM:stanley 09/05/2022 MICROSCOPIC DESCRIPTION Slides are reviewed. GROSS DESCRIPTION Received is one container labeled with the patient's name and designated gallbladder. The specimen consists of a previously, partially opened gallbladder measuring 8.5 cm in length and 2.5 cm in diameter. The external surface is pink-garcia, smooth and glistening for the most part. Focally it is granular, hemorrhagic and contains cautery artifact. The gallbladder contains green-yellow mucoid bile. Present in the container are two greenish-yellow, ovoid stones measuring 2.0 and 2.5 cm in greatest dimension. The mucosa is bile-stained and without any mass lesions. The gallbladder wall measures up to 0.3 cm in thickness. Parasitologist sections from the gallbladder and the cystic duct are submitted in one cassette. / SJ:rg 09/04/2022 TC:3 [facility]: [id number]
[2022-09-03] MEDS: Cefazolin 2 GM in 0.9% Normal Saline 100 ML IV (13:30)
[2022-09-03] MEDS: Bupivacaine 0.25% 30 ML Vial (13:41)
--- NOTE | 2022-09-03 13:45 | RAD_ITS ---
[place] Cholangiogram and/or Pancreatography OR INDICATION:32 years old Female presenting with pain. TECHNIQUE: Fluoroscopic images are submitted from a procedure. Fluoro time: 28 Images:Multiple, two cine runs Dose DAP: 6.22 mGy/m2 FINDINGS: Intraoperative fluoroscopic cholangiogram performed, demonstrating opacification of intrahepatic and extrahepatic biliary ductal system with emptying into duodenal lumen but no filling of gallbladder lumen. No radiologist was present for this procedure. Please see procedure note for further details. Electronically Signed: Jimmy Martínez MD at 7:39 EDT , RAD/Cholangiogram/ O R,Initial IMPRESSION: undefined
--- NOTE | 2022-09-03 14:54 | OP.PCM_ITS ---
Report of Operation Date of Procedure: 09/03/22 Pre-Operative Diagnosis: Symptomatic cholelithiasis Post-Operative Diagnosis: 1. Symptomatic cholelithiasis 2. Chronic cholecystitis Surgery/Procedure Performed:: Laparoscopic cholecystectomy and intraoperative cholangiogram Description of Surgical Findings:: ? Normal biliary anatomy with anterior and posterior cystic arteries. ? Normal cholangiogram showing opacification of small intra and extrahepatic ducts without filling defect Surgeon: William Higgins director of residence life: Monica Pepe Type of Anesthesia: General/Supplemental Anesthesiologist: Huseyin Littlejohn Specimen's removed: Gallbladder Drains: None Estimated Blood Loss (mL): 20 Description of Procedure: After proper identification in the preoperative holding area the patient was brought to the operating room where she was positioned supine on the operating room table. Preoperatively SCDs were placed and antibiotics were administered. General anesthesia was then induced. Patient's abdomen was prepped and draped in usual sterile fashion. A formal timeout was conducted to confirm both patient and the procedure. Procedure was begun with a supraumbilical incision which was extended deeply down to the level of the fascia. The fascia was elevated and incised, as well as the peritoneum. A finger sweep was performed to ensure there were no underlying adhesions and a 12 mm balloon trocar was inserted. Pneumoperitoneum was established at 15 mmHg. 3 additional trocars were placed in the epigastrium and in the right upper quadrant (3 x 5 mm). Inspection of the peritoneum revealed no inadvertent injury to the viscera below. The gallbladder was visualized with mild inflammation. The gallbladder fundus was then grasped and elevated cephalad. Then, using careful dissection the peritoneum was opened and the structures of the hepatocystic triangle were delineated. Once the critical view of safety was obtained, the cystic duct was singly clipped and partially divided with a ductotomy. Given the diminutive size of this duct, I placed a Angiocath in the right upper quadrant and guided our cholangiocatheter into the duct from above and clipped the catheter in place. A cholangiocatheter was fed into the proximal segment of the cystic duct and clipped into place. Under fluoroscopy a cholangiogram was then obtained showing a standard length cystic duct flowing into a common bile duct with unobstructed antegrade flow of contrast into the duodenum. There was also retrograde flow through the common hepatic duct into the right and left hepatic ducts. Satisfied with this result the catheter was withdrawn and the proximal cystic duct was triply clipped and sharply divided. The same process was used for the cystic artery. I performed some additional blunt dissection approaching the cystic plate and isolated a posterior cystic artery terminating in the body of the gallbladder which was clipped and sharply divided as well. The gallbladder was then removed from the gallbladder fossa with the use of electrocautery. Selective electrocautery was used to obtain hemostasis in the gallbladder fossa. The gallbladder was placed in an Endo Catch bag and removed from the peritoneum. Morison's pouch was irrigated and the effluent was suctioned free of the peritoneum. Hemostasis was again confirmed. Pneumoperitoneum was evacuated and the fascia of the 12 mm port sites was closed with #1Vicryl in a [id number] fashion. A total of 30 mL of anesthetic was injected at the port sites for postoperative pain control. The skin of each port site was then closed in subcuticular fashion using 4-0 Monocryl. Steri-Strips and bandages were applied as dressings. Patient tolerated the procedure well without any apparent complications. On emergence from their anesthetic the patient was taken to PACU for ongoing recovery. Grafts/Implants Used: None Complications None Admit VTE Documentation VTE Mechan Device Prophylaxis: SCD's Procedures Digestive 40xxx-49xxx: [id number] Laparo cholecystectomy/graph
--- NOTE | 2022-09-03 15:01 | DCINST_ITS ---
Discharge Instructions Diet Discharge Diet: No restrictions Activity Discharge Activity: May Not Drive (No driving while using narcotic pain medication) and May Shower (Postoperative day 1) May shower in (days): 1 Ice area for (Minutes): 20 Lifting Restrictions: No lifting greater than 15 pounds for 2 weeks after surgery Dressing / Incision Call your doctor if your incision/area has: Continuous Slow Oozing, Increased Pain/ Swelling, Increased Redness, Foul Smelling Discharge and Swelling at the incision site Call your doctor if you observe: Fever of 101 or Higher Remove Dressing in: 1 day (Please leave Steri-Strips intact until they fall off spontaneously or are taken off at your follow-up visit) Cleanse incision/area with: Soap & Water Follow Up Care Please Follow Up With: William Higgins MD When: 7-10days postop Test Results: Test results from this visit will be discussed in further detail at your follow- up appointment, if applicable. Discharge Plan Admission Primary Reason for Your Visit: Gallbladder removal Attending Provider: William Higgins Primary Care Provider: Colt Hardwick Discharge Orders/Prescriptions Prescriptions: New oxycodone 5 mg tablet 5 mg PO Q6H PRN (Reason: pain) 5 Days Qty: 14 0RF Continued etonogestrel-ethinyl estradiol 0.12-0.015 mg/24 hr ring 1 vag ring vaginal Q4W Rx Instructions: leave in place for 3 weeks of a 4-week cycle fluoxetine 20 mg capsule 20 mg PO DAILY Label Comments: take 1 capsule by mouth once daily pantoprazole 40 mg tablet,delayed release (DR/EC) 40 mg PO DAILY multivitamin Capsule 1 cap PO DAILY Referrals / Follow Up: Colt Hardwick MD [Primary Care Provider] - Disposition Disposition (needs filled in before D/C Order can be placed): Home, Self Care
--- NOTE | 2022-09-03 17:27 | SUR.PHASEII ---
PATIENT C/O ABDOMINAL DISCOMFORT BUT DENIES THE NEED FOR ME TO CALL THE DOCTOR FOR ANY PRN PAIN MEDICATIONS.
== END 2022-09-03 18:04 | disposition home or self-care (01) ==
LOC: SDC 11:16 → AC 11:17
PROVIDERS: Anesthesiology; PCP Family Medicine; Referring Provider Surgery; Visit Provider Surgery
PROC: (CPT 47610; principal; 2022-09-03 12:40)
DX: K80.10 Calculus of gallbladder with chronic cholecystitis without obstruction (principal); Z87.891 Personal history of nicotine dependence; K82.9 Disease of gallbladder, unspecified; K21.9 Gastro-esophageal reflux disease without esophagitis; F41.9 Anxiety disorder, unspecified
CPT/HCPCS: 47563; 00790; 74300; 76000; 81025; 88304; 93005; J7120; J2405

== ENCOUNTER 2024-02-28 23:04 | Emergency (ER) | payer OTHER, SELFPAY ==
[2024-02-28 23:05] VITALS: BP 112/63; PULSE 110; RESP 18; TEMP 37.1; O2SAT 100; BMI 31.6
--- NOTE | 2024-02-28 23:55 | EX.ED.DYSGE1 ---
HPI History of Present Illness Chief Complaint: Lower Extremity Injury Detail of Chief Complaint: Right buttock pain Informant: patient Narrative Narrative: Patient presents with right buttock pain that started about 5 days ago. Pain started gradually and progressively worsened. She denies any injury. She denies fevers or chills or sweats. She denies any redness or swelling to the buttock. Pain at times radiates down to her right knee. She denies weakness in the extremity. She denies change in bowel or bladder function. Pain positional at times. She has not had pain like this before. She has tried ibuprofen at home as well as Biofreeze and not get much relief. She currently rates her pain an 8 out of 10. [facility] Medical History (Updated 02/28/24 @ 23:[address] Cielo Osullivan, ) Marijuana use Alcohol use Former smoker Cardiology follow-up encounter History of stress test GERD (gastroesophageal reflux disease) Anxiety Home Medications ?Medication ?Instructions ?Recorded ?Last Taken ?Type fluoxetine 20 mg capsule 20 mg PO DAILY 02/20/22 Unknown History pantoprazole 40 mg tablet,delayed 40 mg PO DAILY 03/28/22 09/03/22 06:00 History release etonogestrel 0.12 mg-ethinyl 1 vag ring vaginal Q4W 08/28/22 Unknown History estradiol 0.015 mg/24 hr vaginal ring multivitamin 1 cap PO DAILY 09/01/22 Unknown History oxycodone 5 mg tablet 5 mg PO Q6H PRN pain 5 days #14 09/03/22 Unknown Rx tabs metoclopramide HCl 10 mg tablet 10 mg PO Q6H PRN nausea and 09/05/22 Unknown Rx (Reglan) vomiting #10 tabs cyclobenzaprine 10 mg tablet 10 mg PO TID PRN Muscle Spasm #20 02/28/24 Unknown Rx TABLETS hydrocodone-acetaminophen 5-325mg 1 tab PO Q4H PRN PRN Pain 2 days 02/28/24 Unknown Rx 5mg-325mg #15 TABLETS naproxen 500 mg tablet 500 mg PO BID #14 tabs 02/28/24 Unknown Rx Allergy/AdvReac Type Severity Reaction Status Date / Time amitriptyline Allergy Hives Verified 02/28/24 23:05 doxycycline Allergy Hives Verified 02/28/24 23:05 Surgical History (Updated 05/03/23 @ 11:[address] William Higgins MD) History of H/O elbow surgery S/P tonsillectomy Social History Smoking Status: Former smoker ROS ROS ED Review of Systems ROS Unobtainable: other Constitutional Constitutional ED: Reports lethargy; Denies chills, fever(s), sweats or weight loss Eyes Eyes: Denies blurry vision, change in vision or diplopia ENT ENT ED: Denies rhinorrhea or sore throat Cardiovascular Cardiovascular: Denies chest pain, orthopnea or racing heartbeat Respiratory/Chest Respiratory/Chest: Denies cough, dyspnea, dyspnea on exertion, orthopnea or sputum Gastrointestinal Gastrointestinal: Denies abdominal pain, diarrhea, nausea or vomiting Genitourinary Genitourinary ED: Denies dysuria, hematuria or urinary frequency Musculoskeletal Musculoskeletal: Reports other Details: Right buttock pain ; Denies arthralgias, back pain, myalgias or neck pain Integumentary Denies abscess, Abrasions or rash Neurologic Neurologic: Denies headache(s) or weakness Psychiatric Psychiatric: Denies anxiety, depression or suicidal thoughts Endocrine Endocrinology: Denies polydipsia, polyphagia or polyuria Hematologic/Lymphatic Hematologic/Lymphatic: Denies easy bleeding, easy bruising or lymphadenopathy Allergic/Immunologic Allergic/Immunologic ED: Denies mouth swelling, tongue swelling or urticaria EXAM Physical Exam Const Vital Signs: 02/28/24 23:05 Temperature 98.8 F Temperature Source Oral Pulse Rate 110 H Respiratory Rate 18 Blood Pressure 112/63 Blood Pressure Mean 79 Pulse Ox 100 Oxygen Delivery Method Room Air Positive well nourished and well developed General Appearance ED: well developed and NAD HEENT Reports TM's clear and moist mucous membranes normocephalic and atraumatic; Negative for trauma or tenderness Tympanic Membrane ED: Yes TM's clear Eyes PERRL and EOMs intact bilaterally General Eye ED: Negative for pale conjunctiva or scleral icterus Neck no lymphadenopathy, supple and no JVD General: Negative for tenderness Chest Wall inspection of chest normal and palpation of chest normal Chest: Negative for tenderness Resp normal respiratory effort and clear to auscultation bilaterally Effort and Inspection: Negative for respiratory distress or pain with movement Auscultation: Negative for rhonchi, wheezes or diminished lung sounds Cardio regular rate, regular rhythm, S1 normal heart sound, S2 normal heart sound and no murmurs Peripheral Pulses: pulses 2+ throughout GI normal to inspection, nondistended, normoactive bowel sounds, soft to palpation, non-tender, non-distended and no masses Back/Spine no CVA tenderness and no thoracic nor lumbar tenderness Back/Spine Narrative: Patient has tenderness palpation over the right piriformis muscle. She has positive straight leg raise at about 70 degrees. Deep tendon reflexes plus 2 out of 4 bilaterally at the patella and Achilles. She has normal 5 extension bilaterally. She has normal sensation to light touch. Dilation of the buttock does not reveal any warmth or erythema or masses or fluctuance Extremity normal to inspection General Extremety ED: Negative for edema General Extremity: Negative for edema Neuro oriented x3, CN's II-XII intact bilaterally, no sensory deficits noted and gait normal Sensorium / Orientation: awake, alert, oriented to person, oriented to place and oriented to time Motor Exam: strength 5/5 throughout and strength abnormal Psych mental status grossly normal Skin no rashes or lesions noted and no wounds MDM MDM MDM Narrative Medical decision making narrative: Patient presents with right buttock pain without trauma. No signs of infection. No cauda equina type symptoms. No significant low back pain. I suspect likely a piriformis syndrome/sciatica. Patient will be started on Flexeril as well as [place] and Naprosyn. Advised to follow-up with primary care physician 5 to 7 days. She is advised to return if worsening pain, weakness in extremities, change in bowel or bladder function, or condition should worsen anyway. Discharge Plan Triage Chief Complaint: Lower Extremity Injury ED Provider: Cielo Osullivan Dx/Rx/DC Orders Clinical Impression: Piriformis syndrome Instructions: ED Sciatica Prescriptions: New cyclobenzaprine 10 mg tablet 10 mg PO TID PRN (Reason: Muscle Spasm) Qty: 20 0RF hydrocodone-acetaminophen 5-325 mg tablet 1 tab PO Q4H PRN PRN (Reason: Pain) 2 Days Qty: 15 0RF naproxen 500 mg tablet 500 mg PO BID Qty: 14 0RF No Action etonogestrel-ethinyl estradiol 0.12-0.015 mg/24 hr ring 1 vag ring vaginal Q4W Rx Instructions: leave in place for 3 weeks of a 4-week cycle metoclopramide HCl [Reglan] 10 mg tablet 10 mg PO Q6H PRN (Reason: nausea and vomiting) Qty: 10 0RF fluoxetine 20 mg capsule 20 mg PO DAILY Patient Comments: take 1 capsule by mouth once daily pantoprazole 40 mg tablet,delayed release (DR/EC) 40 mg PO DAILY multivitamin Capsule 1 cap PO DAILY oxycodone 5 mg tablet 5 mg PO Q6H PRN (Reason: pain) 5 Days Qty: 14 0RF Primary Care Provider: Colt Hardwick Referrals: Colt Hardwick MD [Primary Care Provider] - Print Language: Maori Disposition Disposition: Home, Self Care
[2024-02-29 00:05] VITALS: BP 119/61; PULSE 106; RESP 16; TEMP 36.8; O2SAT 98
[2024-02-29] MEDS: Ketorolac 60 MG/2 ML Vial IM (00:12)
[2024-02-29] MEDS: Morphine 4 MG/ML Syringe IM (00:13)
[2024-02-29] MEDS: Orphenadrine 60 MG/2 ML Ampul IM (00:13)
== END 2024-02-29 00:39 | disposition home or self-care (01) ==
LOC: ED 02-29 00:08
PROVIDERS: Emergency Provider Emergency Medicine; PCP Family Medicine; Visit Provider Emergency Medicine
DX: G57.00 Lesion of sciatic nerve, unspecified lower limb (principal); Z87.891 Personal history of nicotine dependence; K21.9 Gastro-esophageal reflux disease without esophagitis; F41.9 Anxiety disorder, unspecified
CPT/HCPCS: 96372; 99282